=== PATIENT | female | born 1975 | race Caucasian/White ===

== ENCOUNTER → 2017-03-06 | Emergency (ER) | payer MEDICARE, OTHER ==
[~2017-03-06] VITALS: Ht 157.5 cm; Wt 120.9 kg
[~2017-03-06] MED LIST: AUGMENTIN 875-1 EACH PO; CLINDAMYCIN PHOS 600 MG/ 4 ML VIAL IM ONE; IBUPROFEN 400 MG TAB PO ONE
== END | disposition home or self-care (01) ==
LOC: FSED 14:00
DX: K08.9 Disorder of teeth and supporting structures, unspecified (principal); K04.7 Periapical abscess without sinus
CPT/HCPCS: 99282

== ENCOUNTER 2018-05-01 11:09 | Emergency (ER) | payer MEDICARE, OTHER ==
[~2018-05-01] VITALS: Ht 157.5 cm; Wt 120.7 kg
[~2018-05-01 11:09] MED LIST changes: -CLINDAMYCIN PHOS 600 MG/ 4 ML VIAL IM ONE; -IBUPROFEN 400 MG TAB PO ONE
--- OUTSIDE RECORDS SUMMARY | 2018-05-01 11:12 | XMS REPORT | Summary of Care ---
Author Organization Unknown Address Unknown Phone Unavailable Encounter [facility] Encntr_magdi(FIN) [id number] Date(s): 03/30/14 - 03/30/14 [facility] [address] [place] [address]- Discharge Disposition: Home Physician Attending: Emelia Hearn MD Physician_Referring: Emelia Hearn MD Vital Signs No data available for this section Problem List Condition Effective Dates Status Health Status Informant Depression Active (emotion)(Confirmed) Fracture(Confirmed)1 Active Gastritis(Confirmed) Active Hiatal Active hernia(Confirmed) Pain / sensation Active symptom finding(Confirmed) Seizure(Confirmed) Active Ulcer(Confirmed) Active 1right leg Allergies, Adverse Reactions, Alerts Substance Reaction Severity Status NKDA Active Medications No data available for this section Results No data available for this section Immunizations No data available for this section Procedures No data available for this section Social History Social History Type Response Smoking Status Never smoker; Exposure to Tobacco Smoke None; Cigarette Smoking Last 365 Days No; Reg Smoking Cessation Counseling No Assessment and Plan No data available for this section
--- OUTSIDE RECORDS SUMMARY | 2018-05-01 11:12 | XMS REPORT | Summary of Care ---
Author Organization Unknown Address Unknown Phone Unavailable Encounter [facility] Encntr_alias(FIN) [id number] Date(s): 10/10/13 - 11/08/13 [facility] Discharge Disposition: Home Physician Attending: Kadeem Fu Reason for Visit RT ANKLE Problem List Condition Effective Dates Status Health Status Informant Depression Active (emotion)(Confirmed) Fracture(Confirmed)1 Active Gastritis(Confirmed) Active Hiatal Active hernia(Confirmed) Pain / sensation Active symptom finding(Confirmed) Seizure(Confirmed) Active Ulcer(Confirmed) Active 1right leg Allergies, Adverse Reactions, Alerts Substance Reaction Severity Status NKDA Active Medications No data available for this section Medications Administered During Your Visit No data available for this section Immunizations No data available for this section Social History Social History Type Response Smoking Status Never smoker, Exposure to Tobacco Smoke None, Cigarette Smoking Last 365 Days No, Reg Smoking Cessation Counseling No
--- OUTSIDE RECORDS SUMMARY | 2018-05-01 11:12 | XMS REPORT | CCD ---
Author Author Auto Generated Organization [facility] Address Unknown Phone Unavailable Care Team Providers Care Therapist Rrt Name Role Phone Kaity Garza RP Allergies, Adverse Reactions, Alerts Substance Reaction Status NKDA Active Vital Signs Most recent to oldest [Reference Range]: 1 Height 157.48 cm (07/27/2011 11:40:00) Weight 98.182 kg (07/27/2011 11:40:00)
--- OUTSIDE RECORDS SUMMARY | 2018-05-01 11:12 | XMS REPORT | Continuity of Care Document ---
Author Author Namita benja [facility] Interface Address Unknown Phone Unavailable Problems Problem Status Onset Date Classification Date Reported Comments Source M54.12 Active 02/28/2015 [facility] Discharge Diagnosis: Abdominal pain in female patient 07/19/2014 07/22/2014 [facility] ABDOMINAL PAIN Active 07/18/2014 [facility] 787.20 APHAGIA 784.1 BURNING SENSATION O Active 03/28/2014 [facility] BIMALLEOLAR FX Active 07/21/2013 [facility] Discharge Diagnosis: Ankle fracture 07/08/2013 07/10/2013 [facility] FALL-ANKLE PAIN Active 07/07/2013 [facility] OTHER Active 07/30/2012 [facility] NECK PAIN Active 06/22/2012 [facility] [place] STAT; AUDITORY SEIZURE Active 07/24/2011 [facility] Gastritis Active Problem 10/24/2012 [facility] Hiatal hernia Active Problem 10/24/2012 [facility] Seizure Active Problem 10/24/2012 [facility] Ulcer Active Problem 10/24/2012 [facility] Gastritis Active Problem 03/16/2015 [facility] Hiatal hernia Active Problem 03/16/2015 [facility] Seizure Active Problem 03/16/2015 [facility] Ulcer Active Problem 03/16/2015 [facility] Depression (<span ID="[id number]">Confirmed</span>) Active Problem 03/16/2015 [facility] Fracture<sup>1</sup> Active Problem 03/16/2015 right leg [facility] Pain / sensation symptom finding Active Problem 03/16/2015 [facility] CONVULSIONS NEC Active [facility] XRAY Active [facility] JOINT PAIN-SHLDER Active [facility] BILAT HIPS, LUMBAR SPINE Active [facility] [place] FX BIMALLEOLAR-CLOSED Active [facility] SPRAIN OF ANKLE DELTOID Active [facility] SPRAIN CALCANEOFIBULAR Active [facility] SPRAIN DISTAL TIBIOFIBUL Active [facility] RT ANKLE Active [facility] [place] DYSPHAGIA NOS Active [facility] RADICULOPATHY, CERVICAL REGION Active [facility] Medications Medication Details Route Status Patient Instructions Ordering Provider Order Date Source Amoxicillin/Potassium Clav (Augmentin 511-125 Tablet) 1 Each Tablet Twice A Day Active [facility] 03/06/2017 [facility] Promethazine Hydrochloride 25 MG Oral Tablet [Phenergan] 25 mg=1 tab, PO, Q6H, PRN Nausea, X 4 day, # 15 tab, 0 Refill(s) Active 07/19/2014 [facility] Ranitidine 150 MG Oral Tablet [Zantac] 150 mg=1 tab, PO, BID, # 60 tab, 0 Refill(s) Active 07/19/2014 [facility] Dicyclomine Hydrochloride 20 MG Oral Tablet [Bentyl] 20 mg=1 tab, PO, QID-Before Meals, # 28 tab, 0 Refill(s) Active 07/19/2014 [facility] Morphine 4 mg, Route: IVP, Drug form: INJ, ONCE, Dosing Weight 113.636, kg, Priority: STAT, Start date: 07/18/14 23:28:00, Stop date: 07/18/14 23:28:00 Inactive 07/19/2014 [facility] Morphine 4 mg, Route: IVP, ONCE, Dosing Weight 113.636, kg, Priority: STAT, Start date: 07/18/14 19:33:00, Stop date: 07/18/14 19:33:00 Inactive 07/19/2014 [facility] GI cocktail 30 mL, Route: PO, Dosing Weight 113.636, kg, ONCE, STAT, Start date: 07/18/14 19:33:00, Stop date: 07/18/14 19:33:00 Inactive 07/19/2014 [facility] Ondansetron 4 mg, Route: IVP, ONCE, Dosing Weight 113.636, kg, Priority: STAT, Start date: 07/18/14 19:33:00, Stop date: 07/18/14 19:33:00 Inactive 07/19/2014 [facility] Famotidine 20 mg, Route: IVP, ONCE, Dosing Weight 113.636, kg, Priority: STAT, Start date: 07/18/14 19:33:00, Stop date: 07/18/14 19:33:00 Inactive 07/19/2014 [facility] Sodium Chloride 0.154 MEQ/ML Injectable Solution 1,000 mL, Infuse Over: 1 hr, Route: IV, ONCE, Priority: STAT, Dosing Weight 113.636 kg, Start date: 07/18/14 19:33:00, Duration: 1 doses or times, Stop date: 07/18/14 19:33:00 Inactive 07/19/2014 [facility] Saline Flush 0.9% 10 mL, Route: IVP, Drug Form: INJ, Dosing Weight 113.636, kg, PRN, PRN Line Flush, Start date: 07/18/14 19:33:00, Duration: 30 day, Stop date: 08/17/14 19:32:00Notes: (Same as: BD Posiflush) No Longer Active 07/19/2014 [facility] Oxycodone Hydrochloride 5 MG Oral Tablet 5 mg, Route: PO, Drug form: TAB, ONCE, Dosing Weight 95.455, kg, Start date: 07/25/13 16:24:00, Stop date: 07/25/13 16:24:00 Inactive 07/25/2013 [facility] Hydromorphone 1 mg, Route: IV, ONCE, Dosing Weight 95.455, kg, Start date: 07/25/13 15:50:00, Stop date: 07/25/13 15:50:00 Inactive 07/25/2013 [facility] Lactated Ringers IV 1,000 mL 1,000 mL, Rate: 40 ml/hr, Infuse over: 25 hr, Route: IV, Dosing Weight 95.455 kg, Total Volume: 1,000, Start date: 07/25/13 12:30:00, Duration: 30 day, Stop date: 08/24/13 12:29:00 Inactive 07/25/2013 [facility] Diazepam 5 MG Oral Tablet [Valium] 5 mg=1 tab, PO, QID, Spasm, # 30 tab, 0 Refill(s) Active 07/25/2013 [facility] Acetaminophen 325 MG / Hydrocodone Bitartrate 7.5 MG Oral Tablet [[place] 7.5/325] 1-2 tab, PO, Q4-6H, Pain, # 30 tab, 0 Refill(s) Active 07/25/2013 [facility] Cephalexin 500 MG Oral Capsule [Keflex] 500 mg=1 cap, PO, QID, # 40 cap, 0 Refill(s) Active 07/25/2013 [facility] Hydroxyzine Hydrochloride 25 MG Oral Tablet 25 mg=1 tab, PO, as needed for anxiety, 0 Refill(s) Active 07/24/2013 [facility] citalopram 20 mg oral tablet 20 mg=1 tab, PO, Daily, 0 Refill(s) Active 07/24/2013 [facility] omeprazole 20 mg oral enteric coated tablet 20 mg=1 tab, PO, Daily, 0 Refill(s) Active 07/24/2013 [facility] lamotrigine 150 MG Oral Tablet [Lamictal] 150 mg=1 tab, PO, BID, 0 Refill(s) Active 07/24/2013 [facility] lacosamide 100 MG Oral Tablet [Vimpat] 100 mg=1 tab, PO, BID, 0 Refill(s) Active 07/24/2013 [facility] Acetaminophen 325 MG / Hydrocodone Bitartrate 5 MG Oral Tablet [[place] 5/325] 1 tab, PO, Q4-6H, as needed for pain, # 30 tab, 0 Refill(s) Active 07/08/2013 [facility] Acetaminophen 325 MG / Hydrocodone Bitartrate 5 MG Oral Tablet [[place] 5/325] 1 tab, Route: PO, Dosing Weight 114.091, kg, ONCE, Start date: 07/08/13 0:05:00, Stop date: 07/08/13 0:05:00 Inactive 07/08/2013 [facility] [place] 5/325 oral tablet 1-2 tab, PO, Q4-6H, PRN, 15 tab, Pain, Substitution Allowed, Maintenance PO Active Dress Code 07/30/2012 [facility] [place] 5/325 oral tablet 2 tab, Route: PO, Dosing Weight 113.636, kg, ONCE, Start date: 07/30/12 18:32:00, Stop date: 07/30/12 18:32:00 PO No Longer Active Dress Code 07/30/2012 [facility] Saline Flush 0.9% 5 ml, Route: IVP, Drug Form: INJ, Dosing Weight 113.636, kg, PRN, PRN Line Flush, Start date: 07/30/12 14:10:00, Duration: 30 day, Stop date: 08/29/12 14:09:00 IVP No Longer Active [place]aze 07/30/2012 [facility] Allergies, Adverse Reactions, Alerts Substance Category Reaction Severity Reaction type Status Date Reported Comments Source Immunizations Immunization Date Given Site Status Last Updated Comments Source Results Order Name Results Value Reference Range Date Interpretation Comments Source Spine cervical wo contrast MRI Spine cervical wo contrast MRI MRI CERVICAL SPINE WITHOUT CONTRAST INDICATION: Cervical spine pain with right arm radiculopathy COMPARISON: CERVICAL SPINE RADIOGRAPH 05/27/2012 DISCUSSION: Alignment: Vertebral body alignment is within normal limits. Craniocervical junction: No abnormalities. The foramen magnum is patent. Vertebral bodies: There is diffuse abnormal T1 hypointense bone marrow signal. The vertebral bodies are normal in height, without marrow edema, from C2 through T2. Spinal cord: Normal in signal and morphology from the foramen magnum through T2-T3. Soft tissues: No signal abnormalities are visualized. Disc spaces, foramina, and spinal canal: C2-C3 through C7-T1: The discs are normal in height and signal. There is no significant arthrosis. The spinal canal and foramina are patent. IMPRESSION: 1. No significant spondylosis, spinal canal or foraminal stenosis. 2. The spinal cord is normal in signal. 3. Nonspecific diffuse T1 hypointensity of the bone marrow is probably secondary to reconversion of yellow to red marrow. Reconversion can be found incidentally in obese women; however, hemolytic anemias and replacement/destruction of normal red marrow from marrow proliferative or replacement disorders can cause a similar appearance. SL: 16 03/13/2015 - - Read by: Evert Bertrand MD Dictated Date/time: 03/13/15 15:22 Electronically Signed by: Evert Bertrand MD 03/13/15 15:28 FINAL REPORT [facility] ED Abdomen/Pelvis IV contrast only CT ED Abdomen/Pelvis IV contrast only CT HISTORY: Abdominal pain. CT abdomen and pelvis performed with IV contrast. FINDINGS: Mild dependent atelectasis. No pleural effusion. Fatty liver. Prior cholecystectomy. Pancreas, adrenal glands, spleen, kidneys demonstrate no acute finding. No bowel obstruction free air or pathologic fluid. Normal appendix. No evidence for diverticulitis. No pathologic pelvic fluid or mass. IMPRESSION: Previous cholecystectomy. Hepatic steatosis. No acute abdominal or pelvic findings otherwise. SL:12 07/19/2014 - - Read by: Jerry Hernandez MD Dictated Date/time: 07/19/14 01:54 Electronically Signed by: Jerry Hernandez MD 07/19/14 01:56 FINAL REPORT [facility] CHEM PANEL Lipase Lvl 101 unit/L 73 - 393 07/19/2014 [facility] CHEM PANEL Amylase Lvl 50 unit/L 25 - 115 07/19/2014 [facility] CHEM PANEL A/G Ratio 0.9 0.7 - 1.6 07/19/2014 [facility] CHEM PANEL Globulin 4.1 g/dL 2.0 - 4.0 07/19/2014 [facility] CHEM PANEL B/C Ratio 10 6 - 25 07/19/2014 [facility] CHEM PANEL AGAP 11.8 meq/L 10.0 - 20.0 07/19/2014 [facility] CHEM PANEL Chloride Lvl 108 meq/L 95 - 109 07/19/2014 [facility] CHEM PANEL Potassium Lvl 3.8 meq/L 3.5 - 5.1 07/19/2014 [facility] CHEM PANEL Sodium Lvl 140 meq/L 135 - 145 07/19/2014 [facility] CHEM PANEL eGFR 73 mL/min/1.73m2 07/19/2014 1Result Comment: The eGFR is calculated using the CKD-EPI formula. In most young, healthy individuals the eGFR will be >90 mL/min/1.73m2. The eGFR declines with age. An eGFR of 60-89 may be normal in some populations, particularly the elderly, for whom the CKD-EPI formula has not been extensively validated. Use of the eGFR is not recommended in the following populations: Individuals with unstable creatinine concentrations, including patients and those with serious co-morbid conditions. Patients with extremes in muscle mass or diet. The data above are obtained from the National Kidney Disease Education Program (NKDEP) which additionally recommends that when the eGFR is used in patients with extremes of body mass index for purposes of drug dosing, the eGFR should be multiplied by the estimated BMI. [facility] CHEM PANEL Bili Total 0.5 mg/dL 0.2 - 1.3 07/19/2014 [facility] CHEM PANEL Alk Phos 359 unit/L 39 - 136 07/19/2014 [facility] CHEM PANEL AST 197 unit/L 0 - 37 07/19/2014 [facility] CHEM PANEL ALT 200 unit/L 0 - 65 07/19/2014 [facility] CHEM PANEL Albumin Lvl 3.8 g/dL 3.5 - 5.0 07/19/2014 [facility] CHEM PANEL Total Protein 7.9 g/dL 6.4 - 8.4 07/19/2014 [facility] CHEM PANEL Glucose Lvl 116 mg/dL 70 - 99 07/19/2014 2Interpretive Data: Adult reference range values reflect the clinical guidelines of the [place] [employer]. [facility] CHEM PANEL Calcium Lvl 8.7 mg/dL 8.5 - 10.5 07/19/2014 [facility] CHEM PANEL CO2 24 meq/L 24 - 32 07/19/2014 [facility] CHEM PANEL Creatinine Lvl 1.0 mg/dL 0.5 - 1.4 07/19/2014 [facility] CHEM PANEL BUN 10 mg/dL 7 - 22 07/19/2014 [facility] HEMATOLOGY Hct 38.8 % 36.0 - 48.0 07/19/2014 [facility] MCV 80.3 fL 80.0 - 98.0 07/19/2014 [facility] MCH 26.7 pg 27.0 - 31.0 07/19/2014 [facility] MCHC 33.2 g/dL 32.0 - 36.0 07/19/2014 [facility] RDW 15.1 % 11.5 - 14.5 07/19/2014 [facility] Platelet 350 K/CMM 133 - 450 07/19/2014 [facility] MPV 8.4 fL 7.4 - 10.4 07/19/2014 [facility] WBC 8.2 K/CMM 3.7 - 10.4 07/19/2014 [facility] Hgb 12.9 g/dL 12.0 - 16.0 07/19/2014 [facility] RBC 4.83 M/CMM 4.20 - 5.40 07/19/2014 [facility] Basophils # 0.1 K/CMM 0.0 - 0.2 07/19/2014 [facility] HEMATOLOGY Eosinophils # 0.2 K/CMM 0.0 - 0.5 07/19/2014 [facility] Monocytes # 0.5 K/CMM 0.0 - 0.8 07/19/2014 [facility] Lymphocytes 35.6 % 20.0 - 40.0 07/19/2014 [facility] HEMATOLOGY Segs 55.3 % 45.0 - 75.0 07/19/2014 [facility] HEMATOLOGY Monocytes 6.3 % 2.0 - 12.0 07/19/2014 [facility] HEMATOLOGY Eosinophils 2.0 % 0.0 - 4.0 07/19/2014 [facility] HEMATOLOGY Segs-Bands # 4.5 K/CMM 1.5 - 8.1 07/19/2014 [facility] HEMATOLOGY Basophils 0.8 % 0.0 - 1.0 07/19/2014 [facility] HEMATOLOGY Lymphocytes # 2.9 K/CMM 1.0 - 5.5 07/19/2014 [facility] URINE AND STOOL UA Color Ltyellow 07/19/2014 [facility] URINE AND STOOL UA Urobilinogen <=1.0 mg/dL 0.1 - 1.0 07/19/2014 [facility] URINE AND STOOL UA RBC 2 /HPF 0 - 2 07/19/2014 [facility] URINE AND STOOL UA WBC 1 /HPF 0 - 5 07/19/2014 [facility] URINE AND STOOL UA Sq Epi Occasional /LPF Few /LPF 07/19/2014 [facility] URINE AND STOOL UA Blood Small *ABN* (07/18/14 7:53 PM) Negative 07/19/2014 [facility] URINE AND STOOL UA Bili Negative *NA* (07/18/14 7:53 PM) Negative 07/19/2014 [facility] URINE AND STOOL UA Nitrite Negative (07/18/14 7:53 PM) Negative 07/19/2014 [facility] URINE AND STOOL UA Leuk Est Negative (07/18/14 7:53 PM) Negative 07/19/2014 [facility] URINE AND STOOL UA Turbidity Clear (07/18/14 7:53 PM) Clear 07/19/2014 [facility] URINE AND STOOL UA pH 6.0 5.0 - 8.0 07/19/2014 [facility] URINE AND STOOL UA Spec Grav 1.010 <=1.030 07/19/2014 [facility] URINE AND STOOL UA Glucose Negative mg/dL Negative mg/dL 07/19/2014 [facility] URINE AND STOOL UA Protein Negative mg/dL Negative mg/dL 07/19/2014 [facility] URINE AND STOOL UA Ketones Negative mg/dL Negative mg/dL 07/19/2014 [facility] URINE CHEM U Preg Negative (07/18/14 7:53 PM) Negative 07/19/2014 [facility] Abdomen RUQ US Abdomen RUQ US HISTORY: Acute abdominal pain. Gallbladder absent. Fatty liver. Common bile duct normal 5 mm. Pancreatic neck appears normal. Remaining pancreas obscured. Right kidney demonstrates no hydronephrosis. IMPRESSION: Prior cholecystectomy. No acute finding. Hepatic steatosis. SL:12 07/18/2014 - - Read by: Jerry Hernandez MD Dictated Date/time: 07/18/14 22:48 Electronically Signed by: Jerry Hernandez MD 07/18/14 22:49 FINAL REPORT [facility] Barium Swallow w Esophagus Function DX Barium Swallow w Esophagus Function DX Barium Swallow/Video esophagram: CLINICAL HX: Dysphagia, neck pain TECHNIQUE: Thin barium was utilized for prone and LPO images. Thick barium was utilized for upright imaging of the esophagus and pharynx. Hamburger meat with barium paste was given to evaluate motility with solids. FINDINGS: There is no delay in passage of bolus from the pharynx into the esophagus. The cricopharyngeus relaxes normally. There is no evidence for a cricopharyngeal bar or Zenker's diverticulum. Prone and LPO images of the esophagus reveal no significant dysmotility. Tiny hiatal hernia, approximately 1 cm in size, is visualized at the GE junction. Mild gastroesophageal reflux Upright images with thick barium reveal no significant dysmotility. No mass lesions or strictures are visualized. The tiny hernia is not visualized on the upright images. Mild gastroesophageal reflux. Subsequently 2 separate swallows of a small piece of hamburger meat and barium were fluoroscopically followed through the length of esophagus. There is no significant delay in passage of the solid barium bolus from the pharynx to the esophagus and subsequently into the stomach. Overhead image performed at the conclusion of the procedure reveals prompt passage of barium from the stomach to the proximal small bowel. IMPRESSION: Tiny sliding hiatal hernia is visualized at the GE junction. Mild gastroesophageal reflux. Fluoroscopy Time: 3.4 minutes SL:13 03/30/2014 - - Read by: Travis Diez MD Dictated Date/time: 03/30/14 17:13 Electronically Signed by: Travis Diez MD 04/02/14 07:50 FINAL REPORT [facility] Ankle 2 views Ankle 2 views C- arm spot images from the operating room show placement of a lateral fibular sideplate and screws, medial malleolar screws, and medial and lateral malleolar washers related to synchondrosis fixation. The osseous structures are anatomically aligned. SL:13 07/25/2013 - - Read by: Robb Jansen MD Dictated Date/time: 07/25/13 17:41 Electronically Signed by: Robb Jansen MD 07/25/13 17:43 FINAL REPORT [facility] MCV 76.7 fL 81.0 - 99.0 07/24/2013 [facility] MCH 26.0 pg 27.0 - 31.0 07/24/2013 [facility] MPV 8.1 fL 7.4 - 10.4 07/24/2013 [facility] RDW 13.8 % 11.5 - 14.5 07/24/2013 [facility] MCHC 33.8 g/dL 32.0 - 36.0 07/24/2013 [facility] Platelet 438 K/CMM 133 - 450 07/24/2013 [facility] WBC 9.5 K/CMM 3.7 - 10.4 07/24/2013 [facility] Hct 37.6 % 36.0 - 48.0 07/24/2013 [facility] RBC 4.90 M/CMM 4.20 - 5.40 07/24/2013 [facility] Hgb 12.7 g/dL 12.0 - 16.0 07/24/2013 [facility] Basophils # 0.0 K/CMM 0.0 - 0.2 07/24/2013 [facility] HEMATOLOGY Eosinophils 3.1 % 0.0 - 4.0 07/24/2013 [facility] Monocytes 7.7 % 2.0 - 12.0 07/24/2013 [facility] Lymphocytes 42.2 % 20.0 - 40.0 07/24/2013 [facility] HEMATOLOGY Segs 46.5 % 45.0 - 75.0 07/24/2013 [facility] Basophils 0.5 % 0.0 - 1.0 07/24/2013 [facility] HEMATOLOGY Lymphocytes # 4.0 K/CMM 1.0 - 5.5 07/24/2013 [facility] HEMATOLOGY Segs-Bands # 4.4 K/CMM 1.5 - 8.1 07/24/2013 [facility] Monocytes # 0.7 K/CMM 0.0 - 0.8 07/24/2013 [facility] Eosinophils # 0.3 K/CMM 0.0 - 0.5 07/24/2013 [facility] URINE CHEM U Preg Negative (07/24/13 3:44 PM) Negative 07/24/2013 [facility] Ankle 3 views Ankle 3 views Right ankle, 3 views: CLINICAL HISTORY: Pain and swelling Nondisplaced comminuted fracture distally in the fibula. Displaced medial malleolar fracture. Widened ankle mortise with anterior subluxation of the distal tibia with respect to the talus. Moderate diffuse soft tissue thickening. SL:17 07/08/2013 - - Read by: Hema Tate MD Dictated Date/time: 07/08/13 00:23 Electronically Signed by: Hema Tate MD 07/08/13 00:24 FINAL REPORT [facility] CHEMISTRY U Opiate Scr Positive *ABN* (07/30/2012 16:50:00) Negative 07/30/2012 ABN [facility] CHEMISTRY U Cannab Scr Negative *NA* (07/30/2012 16:50:00) Negative 07/30/2012 NA [facility] CHEMISTRY U Phencyc Scr Negative *NA* (07/30/2012 16:50:00) Negative 07/30/2012 NA [facility] U Cocaine Scr Negative *NA* (07/30/2012 16:50:00) Negative 07/30/2012 NA [facility] CHEMISTRY U Benzodia Scr Negative *NA* (07/30/2012 16:50:00) Negative 07/30/2012 NA [facility] CHEMISTRY UDS Note See Note 3 (07/30/2012 16:50:00) 07/30/2012 Normal 3Interpretive Data: Drugs reported as positive have not been confirmed by a second method and should be used for medical purposes only. To order confirmation, contact laboratory. note: Below are cut-off concentrations for all urine drugs of abuse performed in the laboratory. Some drugs listed in the table may not be included in this panel. Description Cut-off concentration Amphetamine 1000 ng/mL Barbiturates 200 ng/mL Benzodiazepines 300 ng/mL Cocaine metabolites 300 ng/mL Opiates 300 ng/mL Phencyclidine 25 ng/mL Propoxyphene 300 ng/mL Marijuana metabolites 50 ng/mL Methadone 300 ng/mL Urine alcohol 20 mg/dL [facility] CHEMISTRY U Lynda Scr Negative *NA* (07/30/2012 16:50:00) Negative 07/30/2012 [facility] CHEMISTRY U Amph Scr Negative *NA* (07/30/2012 16:50:00) Negative 07/30/2012 [facility] URINALYSIS UA Urobilinogen <=1.0 mg/dL
*NA*
(07/30/2012 16:50:00) <sup> </sup> 0.1 - 1.0 07/30/2012 [facility] URINALYSIS UA Color Ltyellow 07/30/2012 [facility] URINALYSIS UA pH 5.0 5.0 - 8.0 07/30/2012 Normal [facility] URINALYSIS UA Turbidity Clear (07/30/2012 16:50:00) Clear 07/30/2012 Normal [facility] URINALYSIS UA RBC 2 /HPF 0 - 2 07/30/2012 Normal [facility] URINALYSIS UA Sq Epi Occasional /LPF *NA* (07/30/2012 16:50:00) Few 07/30/2012 [facility] URINALYSIS UA Uric Ac Michelle Occasional /HPF *NA* (07/30/2012 16:50:00) None Seen 07/30/2012 [facility] URINALYSIS UA Mucus Few /LPF *NA* (07/30/2012 16:50:00) None Seen 07/30/2012 [facility] URINALYSIS UA Spec Grav 1.013 <=1.030 07/30/2012 Normal [facility] URINALYSIS UA Bili Negative *NA* (07/30/2012 16:50:00) Negative 07/30/2012 [facility] URINALYSIS UA Protein 100 mg/dL *ABN* (07/30/2012 16:50:00) Negative 07/30/2012 ABN [facility] URINALYSIS UA Glucose Negative mg/dL *NA* (07/30/2012 16:50:00) Negative 07/30/2012 [facility] URINALYSIS UA Blood Moderate *ABN* (07/30/2012 16:50:00) Negative 07/30/2012 ABN [facility] URINALYSIS UA Ketones Negative mg/dL *NA* (07/30/2012 16:50:00) Negative 07/30/2012 NA [facility] URINALYSIS UA Bacteria Occasional /HPF *NA* (07/30/2012 16:50:00) None Seen 07/30/2012 NA [facility] URINALYSIS UA WBC 1 /HPF 0 - 5 07/30/2012 Normal [facility] URINALYSIS UA Nitrite Negative (07/30/2012 16:50:00) Negative 07/30/2012 Normal [facility] URINALYSIS UA Leuk Est Negative (07/30/2012 16:50:00) Negative 07/30/2012 Normal [facility] CHEMISTRY B/C Ratio 8 6 - 25 07/30/2012 Normal [facility] CHEMISTRY Globulin 4.7 g/dL 2.0 - 4.0 07/30/2012 [facility] CHEMISTRY A/G Ratio 0.8 0.7 - 1.6 07/30/2012 Normal [facility] CHEMISTRY AGAP 24.7 meq/L 10.0 - 20.0 07/30/2012 [facility] CHEMISTRY eGFR 59 mL/min/1.73m2 07/30/2012 NA 1Result Comment: The eGFR is calculated using the CKD-EPI formula. In most young, healthy individuals the eGFR will be >90 mL/min/1.73m2. The eGFR declines with age. An eGFR of 60-89 may be normal in some populations, particularly the elderly, for whom the CKD-EPI formula has not been extensively validated. Use of the eGFR is not recommended in the following populations: Individuals with unstable creatinine concentrations, including patients and those with serious co-morbid conditions. Patients with extremes in muscle mass or diet. The data above are obtained from the National Kidney Disease Education Program (NKDEP) which additionally recommends that when the eGFR is used in patients with extremes of body mass index for purposes of drug dosing, the eGFR should be multiplied by the estimated BMI. [facility] CHEMISTRY Albumin Lvl 3.8 g/dL 3.5 - 5.0 07/30/2012 Normal [facility] CHEMISTRY Alk Phos 255 unit/L 39 - 136 07/30/2012 [facility] CHEMISTRY Bili Total 0.4 mg/dL 0.2 - 1.3 07/30/2012 Normal [facility] CHEMISTRY ALT 88 unit/L 0 - 65 07/30/2012 [facility] CHEMISTRY AST 55 unit/L 0 - 37 07/30/2012 [facility] CHEMISTRY Creatinine Lvl 1.2 mg/dL 0.5 - 1.4 07/30/2012 Normal [facility] CHEMISTRY Glucose Lvl 181 mg/dL 70 - 99 07/30/2012 HI 2Interpretive Data: Adult reference range values reflect the clinical guidelines of the [place] [employer]. [facility] CHEMISTRY BUN 10 mg/dL 7 - 22 07/30/2012 Normal [facility] CHEMISTRY Total Protein 8.5 g/dL 6.4 - 8.4 07/30/2012 HI [facility] CHEMISTRY CO2 13 meq/L 24 - 32 07/30/2012 LOW [facility] CHEMISTRY Calcium Lvl 8.7 mg/dL 8.5 - 10.5 07/30/2012 Normal [facility] CHEMISTRY Chloride Lvl 108 meq/L 95 - 109 07/30/2012 Normal [facility] CHEMISTRY Potassium Lvl 3.7 meq/L 3.5 - 5.1 07/30/2012 Normal [facility] CHEMISTRY Sodium Lvl 142 meq/L 135 - 145 07/30/2012 Normal [facility] HEMATOLOGY WBC 21.3 K/CMM 3.7 - 10.4 07/30/2012 HI [facility] HEMATOLOGY RBC 5.12 M/CMM 4.20 - 5.40 07/30/2012 Normal [facility] HEMATOLOGY Hgb 14.1 g/dL 12.0 - 16.0 07/30/2012 Normal [facility] HEMATOLOGY Hct 43.2 % 36.0 - 48.0 07/30/2012 Normal [facility] HEMATOLOGY Platelet 419 K/CMM 133 - 450 07/30/2012 Normal [facility] HEMATOLOGY MPV 8.7 fL 7.4 - 10.4 07/30/2012 Normal [facility] HEMATOLOGY MCHC 32.6 g/dL 32.0 - 36.0 07/30/2012 Normal [facility] HEMATOLOGY RDW 14.2 % 11.5 - 14.5 07/30/2012 Normal [facility] HEMATOLOGY MCV 84.2 fL 81.0 - 99.0 07/30/2012 Normal [facility] HEMATOLOGY MCH 27.5 pg 27.0 - 31.0 07/30/2012 Normal [facility] HEMATOLOGY INR 0.95 0.85 - 1.17 07/30/2012 Normal 4Interpretive Data: RECOMMENDED RANGES FOR PROTIME INR: 2.0-3.0 for most medical and surgical thromboembolic states. 2.5-3.5 for artificial heart valves and recurrent embolism. INR SHOULD BE USED ONLY FOR PATIENTS ON STABLE ANTICOAGULANT THERAPY. [facility] HEMATOLOGY PTT 29.6 s 22.9 - 35.8 07/30/2012 Normal 5Interpretive Data: Heparin Therapeutic Range: 57 - 92 Seconds [facility] HEMATOLOGY PT 12.9 s 12.0 - 14.7 07/30/2012 Normal [facility] HEMATOLOGY Segs-Bands # 10.2 K/CMM 1.5 - 8.1 07/30/2012 [facility] HEMATOLOGY Basophils 0.4 % 0.0 - 1.0 07/30/2012 Normal [facility] HEMATOLOGY Lymphocytes # 9.2 K/CMM 1.0 - 5.5 07/30/2012 [facility] HEMATOLOGY Eosinophils 1.5 % 0.0 - 4.0 07/30/2012 Normal [facility] HEMATOLOGY Monocytes 6.8 % 2.0 - 12.0 07/30/2012 Normal [facility] HEMATOLOGY Monocytes # 1.4 K/CMM 0.0 - 0.8 07/30/2012 [facility] HEMATOLOGY Lymphocytes 43.1 % 20.0 - 40.0 07/30/2012 [facility] HEMATOLOGY Eosinophils # 0.3 K/CMM 0.0 - 0.5 07/30/2012 Normal [facility] HEMATOLOGY Basophils # 0.1 K/CMM 0.0 - 0.2 07/30/2012 Normal [facility] HEMATOLOGY Segs 48.2 % 45.0 - 75.0 07/30/2012 Normal [facility] Vital Signs Vital Sign Value Date Comments Source Systolic (mm Hg) 138 07/19/2014 [facility] Diastolic (mm Hg) 80 07/19/2014 [facility] Respitory Rate 18 07/19/2014 [facility] Temperature Oral (F) 98.4 F 07/19/2014 [facility] Heart Rate 88 07/19/2014 [facility] Respitory Rate 20 07/19/2014 [facility] Heart Rate 95 07/19/2014 [facility] Temperature Oral (F) 98.0 F 07/19/2014 [facility] Systolic (mm Hg) 140 07/19/2014 [facility] Diastolic (mm Hg) 86 07/19/2014 [facility] Systolic (mm Hg) 143 07/19/2014 [facility] Diastolic (mm Hg) 83 07/19/2014 [facility] Temperature Oral (F) 98.0 F 07/19/2014 [facility] Heart Rate 94 07/19/2014 [facility] Respitory Rate 18 07/19/2014 [facility] Weight 113.636 07/18/2014 [facility] BMI Calculated 44.38 07/18/2014 [facility] Height 160.02 cm 07/18/2014 [facility] Diastolic (mm Hg) 79 07/25/2013 [facility] Systolic (mm Hg) 142 07/25/2013 [facility] Respitory Rate 18 07/25/2013 [facility] Systolic (mm Hg) 149 07/25/2013 [facility] Diastolic (mm Hg) 82 07/25/2013 [facility] Respitory Rate 21 07/25/2013 [facility] Systolic (mm Hg) 138 07/25/2013 [facility] Diastolic (mm Hg) 77 07/25/2013 [facility] Respitory Rate 19 07/25/2013 [facility] Temperature Oral (F) 98.0 F 07/24/2013 [facility] Heart Rate 91 07/24/2013 [facility] Height 157.48 cm 07/24/2013 [facility] Weight 95.455 07/24/2013 [facility] BMI Calculated 38.49 07/24/2013 [facility] Temperature Oral (F) 98.5 F 07/08/2013 [facility] Diastolic (mm Hg) 65 07/08/2013 [facility] Respitory Rate 18 07/08/2013 [facility] Systolic (mm Hg) 111 07/08/2013 [facility] Heart Rate 100 07/08/2013 [facility] Systolic (mm Hg) 131 07/08/2013 [facility] Diastolic (mm Hg) 78 07/08/2013 [facility] Heart Rate 110 07/08/2013 [facility] Respitory Rate 18 07/08/2013 [facility] Weight 114.091 07/08/2013 [facility] BMI Calculated 46 07/08/2013 [facility] Height 157.48 cm 07/08/2013 [facility] Temperature Oral (F) 98.6 F 07/08/2013 [facility] Respitory Rate 16 07/08/2013 [facility] Heart Rate 90 07/08/2013 [facility] Diastolic (mm Hg) 118 07/08/2013 [facility] Systolic (mm Hg) 187 07/08/2013 [facility] Height 165.1 cm 07/30/2012 [facility] Weight 113.636 07/30/2012 [facility] Weight 98.182 07/27/2011 [facility] Height 157.48 cm 07/27/2011 [facility] Encounters Location Location Details Encounter Type Encounter Number Reason For Visit Attending Provider ADM Date DC Date Status Source [facility] Outpatient [id number] STAT; AUDITORY SEIZURE KAITY MAJMUNDAR 07/27/2011 Active [facility] Outpatient [id number] MARY MORAES 05/27/2012 Active [facility] [id number] NECK PAIN ABDI MORAES 06/28/[address] [facility] Emergency [id number] TIBURCIO CLARK 07/30/2012 07/30/2012 Active [facility] [id number] BILAT HIPS, LUMBAR SPINE ABDI MORAES 09/23/2012 Active [facility] [id number] Sunny Parikh 07/08/2013 07/08/2013 [facility] OBS Day Surgery [id number] Kadeem Fu 07/25/2013 07/25/2013 [facility] OP Therapy Patients [id number] Kadeem Fu 10/10/2013 11/09/2013 [facility] Outpatient [id number] Emelia Hearn 03/30/2014 03/31/2014 [facility] Emergency Center [id number] Donnell Tovar 07/18/2014 07/19/2014 [facility] Outpatient [id number] Kaity Garza 03/13/2015 03/14/2015 [facility] Departed Emergency Room [id number] LIAM BUSCH MD 03/06/2017 03/06/2017 [facility] Procedures Procedure Code Date Perfomer Comments Source Laparoscopy [id number] 02/08/2005 [facility] Cholecystectomy [id number] [facility] Cholecystectomy [id number] [facility]
--- OUTSIDE RECORDS SUMMARY | 2018-05-01 11:12 | XMS REPORT | Summary of Care ---
Author Organization Unknown Address Unknown Phone Unavailable Encounter MAX Cody(KATY) [id number] Date(s): 07/07/13 - 07/08/13 [facility] [address] [place], [place] [id number] [place] [address] Discharge Diagnosis: Ankle fracture Discharge Disposition: Home Physician Attending: Sunny Parikh MD Reason for Visit FALL-ANKLE PAIN Vital Signs 1 2 3 Most recent to oldest [Reference Range]: 157.48 cm (07/07/13 11:13 PM) Height 98.5 DegF (07/08/13 1:08 AM) 98.6 DegF (07/07/13 11:13 PM) Temperature Oral [96.4-99.1 DegF] 111 mmHg (07/08/13 1:08 AM) 131 mmHg (07/08/13 12:16 AM) 187 mmHg *HI* (07/07/13 11:13 PM) Systolic Blood Pressure [90-140 mmHg] 65 mmHg (07/08/13 1:08 AM) 78 mmHg (07/08/13 12:16 AM) 118 mmHg *HI* (07/07/13 11:13 PM) Diastolic Blood Pressure [60-90 mmHg] 18 BRMIN (07/08/13 1:08 AM) 18 BRMIN (07/08/13 12:16 AM) 16 BRMIN (07/07/13 11:13 PM) Respiratory Rate [14-20 BRMIN] 100 bpm (07/08/13 1:08 AM) 110 bpm *HI* (07/08/13 12:16 AM) 90 bpm (07/07/13 11:13 PM) Peripheral Pulse Rate [60-100 bpm] 114.091 kg (07/07/13 11:13 PM) Weight 46 m2 (07/07/13 11:13 PM) Body Mass Index Problem List Condition Effective Dates Status Health Status Informant Gastritis(Confirmed) Active Hiatal Active hernia(Confirmed) Seizure(Confirmed) Active Ulcer(Confirmed) Active Allergies, Adverse Reactions, Alerts Substance Reaction Severity Status NKDA Active Medications Shafter 5/325 oral tablet 1 tab, Route: PO, Dosing Weight 114.091, kg, ONCE, Start date: 07/08/13 0:05:00, Stop date: 07/08/13 0:05:00 Start Date: 07/08/13 Stop Date: 07/08/13 Status: Completed Shafter 5/325 oral tablet 1 tab, PO, Q4-6H, as needed for pain, # 30 tab, 0 Refill(s) Start Date: 07/08/13 Status: Ordered Medications Administered During Your Visit No data available for this section Immunizations No data available for this section Social History Social History Type Response Smoking Status Never smoker, Exposure to Tobacco Smoke None, Cigarette Smoking Last 365 Days No, Reg Smoking Cessation Counseling No
--- OUTSIDE RECORDS SUMMARY | 2018-05-01 11:12 | XMS REPORT | Summary of Care ---
Author Organization Unknown Address Unknown Phone Unavailable Encounter HQ Seymour_magdi(KATY) [id number] Date(s): 07/25/13 - 07/25/13 [facility] [address] [address] Discharge Disposition: Home Physician Attending: Kadeem Fu Physician_Referring: Kadeem Fu Reason for Visit BIMALLEOLAR FX Vital Signs 1 2 3 Most recent to oldest [Reference Range]: 157.48 cm (07/24/13 3:06 PM) Height 98.0 DegF (07/24/13 3:20 PM) Temperature Oral [96.4-99.1 DegF] 142 mmHg *HI* (07/25/13 5:15 PM) 149 mmHg *HI* (07/25/13 4:00 PM) 138 mmHg (07/25/13 3:45 PM) Systolic Blood Pressure [90-140 mmHg] 79 mmHg (07/25/13 5:15 PM) 82 mmHg (07/25/13 4:00 PM) 77 mmHg (07/25/13 3:45 PM) Diastolic Blood Pressure [60-90 mmHg] 18 BRMIN (07/25/13 5:15 PM) 21 BRMIN *HI* (07/25/13 4:00 PM) 19 BRMIN (07/25/13 3:45 PM) Respiratory Rate [14-20 BRMIN] 91 bpm (07/24/13 3:20 PM) Peripheral Pulse Rate [60-100 bpm] 95.455 kg (07/24/13 3:06 PM) Weight 38.49 m2 (07/24/13 3:06 PM) Body Mass Index Problem List Condition Effective Dates Status Health Status Informant Depression Active (emotion)(Confirmed) Fracture(Confirmed)1 Active Gastritis(Confirmed) Active Hiatal Active hernia(Confirmed) Pain / sensation Active symptom finding(Confirmed) Seizure(Confirmed) Active Ulcer(Confirmed) Active 1right leg Allergies, Adverse Reactions, Alerts Substance Reaction Severity Status NKDA Active Medications citalopram 20 mg oral tablet 20 mg=1 tab, PO, Daily, 0 Refill(s) Start Date: 07/24/13 Status: Ordered hydromorphone 1 mg, Route: IV, ONCE, Dosing Weight 95.455, kg, Start date: 07/25/13 15:50:00, Stop date: 07/25/13 15:50:00 Start Date: 07/25/13 Stop Date: 07/25/13 Status: Completed hydrOXYzine hydrochloride 25 mg oral tablet 25 mg=1 tab, PO, as needed for anxiety, 0 Refill(s) Start Date: 07/24/13 Status: Ordered Keflex 500 mg oral capsule 500 mg=1 cap, PO, QID, # 40 cap, 0 Refill(s) Start Date: 07/25/13 Stop Date: 08/04/13 Status: Ordered Lactated Ringers IV 1,000 mL 1,000 mL, Rate: 40 ml/hr, Infuse over: 25 hr, Route: IV, Dosing Weight 95.455 kg , Total Volume: 1,000, Start date: 07/25/13 12:30:00, Duration: 30 day, Stop eva e: 08/24/13 12:29:00 Start Date: 07/25/13 Stop Date: 07/25/13 Status: Discontinued LaMICtal 150 mg oral tablet 150 mg=1 tab, PO, BID, 0 Refill(s) Start Date: 07/24/13 Status: Ordered [place] 7.5/325 oral tablet 1-2 tab, PO, Q4-6H, Pain, # 30 tab, 0 Refill(s) Start Date: 07/25/13 Stop Date: 07/30/13 Status: Ordered omeprazole 20 mg oral enteric coated tablet 20 mg=1 tab, PO, Daily, 0 Refill(s) Start Date: 07/24/13 Status: Ordered oxyCODONE 5 mg immediate release 5 mg, Route: PO, Drug form: TAB, ONCE, Dosing Weight 95.455, kg, Start date: 16:24:00, Stop date: 07/25/13 16:24:00 Start Date: 07/25/13 Stop Date: 07/25/13 Status: Completed Valium 5 mg oral tablet 5 mg=1 tab, PO, QID, Spasm, # 30 tab, 0 Refill(s) Start Date: 07/25/13 Status: Ordered Vimpat 100 mg oral tablet 100 mg=1 tab, PO, BID, 0 Refill(s) Start Date: 07/24/13 Status: Ordered Results URINE CHEM Most recent to 1 oldest [Reference Range]: U Preg [Negative] Negative (07/24/13 3:44 PM) HEMATOLOGY Most recent to 1 oldest [Reference Range]: WBC [3.7-10.4 K/CMM] 9.5 K/CMM (07/24/13 3:44 PM) RBC [4.20-5.40 4.90 M/CMM M/CMM] (07/24/13 3:44 PM) Hgb [12.0-16.0 g/dL] 12.7 g/dL (07/24/13 3:44 PM) Hct [36.0-48.0 %] 37.6 % (07/24/13 3:44 PM) MCV [81.0-99.0 fL] 76.7 fL *LOW* (07/24/13 3:44 PM) MCH [27.0-31.0 pg] 26.0 pg *LOW* (07/24/13 3:44 PM) MCHC [32.0-36.0 33.8 g/dL g/dL] (07/24/13 3:44 PM) RDW [11.5-14.5 %] 13.8 % (07/24/13 3:44 PM) Platelet [133-450 438 K/CMM K/CMM] (07/24/13 3:44 PM) MPV [7.4-10.4 fL] 8.1 fL (07/24/13 3:44 PM) Segs [45.0-75.0 %] 46.5 % (07/24/13 3:44 PM) Lymphocytes 42.2 % [20.0-40.0 %] *HI* (07/24/13 3:44 PM) Monocytes [2.0-12.0 7.7 % %] (07/24/13 3:44 PM) Eosinophils [0.0-4.0 3.1 % %] (07/24/13 3:44 PM) Basophils [0.0-1.0 0.5 % %] (07/24/13 3:44 PM) Segs-Bands # 4.4 K/CMM [1.5-8.1 K/CMM] (07/24/13 3:44 PM) Lymphocytes # 4.0 K/CMM [1.0-5.5 K/CMM] (07/24/13 3:44 PM) Monocytes # [0.0-0.8 0.7 K/CMM K/CMM] (07/24/13 3:44 PM) Eosinophils # 0.3 K/CMM [0.0-0.5 K/CMM] (07/24/13 3:44 PM) Basophils # [0.0-0.2 0.0 K/CMM K/CMM] (07/24/13 3:44 PM) Medications Administered During Your Visit No data available for this section Immunizations No data available for this section Procedures Procedure Type Body Site Date of Procedure Related Diagnosis 2005 Social History Social History Type Response Smoking Status Never smoker, Exposure to Tobacco Smoke None, Cigarette Smoking Last 365 Days No, Reg Smoking Cessation Counseling No
--- OUTSIDE RECORDS SUMMARY | 2018-05-01 11:12 | XMS REPORT | Summary of Care ---
Author Organization Unknown Address Unknown Phone Unavailable Encounter HQ Glo(KATY) [id number] Date(s): 07/18/14 - 07/19/14 [facility] [address] [place] [address]- [phone] Discharge Diagnosis: Abdominal pain in female patient Discharge Disposition: Home Physician Attending: Donnell Tovar MD Vital Signs 1 2 3 Most recent to oldest [Reference Range]: 160.02 cm (07/18/14 5:38 PM) Height 98.4 DegF (07/19/14 2:50 AM) 98.0 DegF (07/19/14 12:50 AM) 98.0 DegF (07/18/14 10:50 PM) Temperature Oral [96.4-99.1 DegF] 138/80 mmHg (07/19/14 2:50 AM) 140/86 mmHg (07/19/14 12:50 AM) 143/83 mmHg *HI* (07/18/14 10:50 PM) Blood Pressure [90-140/60-90 mmHg] 18 BRMIN (07/19/14 2:50 AM) 20 BRMIN (07/19/14 12:50 AM) 18 BRMIN (07/18/14 10:50 PM) Respiratory Rate [14-20 BRMIN] 88 bpm (07/19/14 2:50 AM) 95 bpm (07/19/14 12:50 AM) 94 bpm (07/18/14 10:50 PM) Peripheral Pulse Rate [60-100 bpm] 113.636 kg (07/18/14 5:38 PM) Weight 44.38 m2 (07/18/14 5:38 PM) Body Mass Index Problem List Condition Effective Dates Status Health Status Informant Depression Active (emotion)(Confirmed) Fracture(Confirmed)1 Active Gastritis(Confirmed) Active Hiatal Active hernia(Confirmed) Pain / sensation Active symptom finding(Confirmed) Seizure(Confirmed) Active Ulcer(Confirmed) Active 1right leg Allergies, Adverse Reactions, Alerts Substance Reaction Severity Status NKDA Active Medications Bentyl 20 mg oral tablet 20 mg=1 tab, PO, QID-Before Meals, # 28 tab, 0 Refill(s) Start Date: 07/19/14 Stop Date: 07/26/14 Status: Ordered famotidine 20 mg, Route: IVP, ONCE, Dosing Weight 113.636, kg, Priority: STAT, Start date: 07/18/14 19:33:00, Stop date: 07/18/14 19:33:00 Start Date: 07/18/14 Stop Date: 07/18/14 Status: Completed GI cocktail 30 mL, Route: PO, Dosing Weight 113.636, kg, ONCE, STAT, Start date: 07/18/14 19 :33:00, Stop date: 07/18/14 19:33:00 Start Date: 07/18/14 Stop Date: 07/18/14 Status: Completed morphine Sulfate 4 mg, Route: IVP, Drug form: INJ, ONCE, Dosing Weight 113.636, kg, Priority: STA T, Start date: 07/18/14 23:28:00, Stop date: 07/18/14 23:28:00 Start Date: 07/18/14 Stop Date: 07/18/14 Status: Completed morphine Sulfate 4 mg, Route: IVP, ONCE, Dosing Weight 113.636, kg, Priority: STAT, Start date: 0 07/18/14 19:33:00, Stop date: 07/18/14 19:33:00 Start Date: 07/18/14 Stop Date: 07/18/14 Status: Completed ondansetron 4 mg, Route: IVP, ONCE, Dosing Weight 113.636, kg, Priority: STAT, Start date: 0 07/18/14 19:33:00, Stop date: 07/18/14 19:33:00 Start Date: 07/18/14 Stop Date: 07/18/14 Status: Completed Phenergan 25 mg oral tablet 25 mg=1 tab, PO, Q6H, PRN Nausea, X 4 day, # 15 tab, 0 Refill(s) Start Date: 07/19/14 Stop Date: 07/23/14 Status: Ordered Saline Flush 0.9% 10 mL, Route: IVP, Drug Form: INJ, Dosing Weight 113.636, kg, PRN, PRN Line Flus h, Start date: 07/18/14 19:33:00, Duration: 30 day, Stop date: 08/17/14 19:32:00 Notes: (Same as: BD Posiflush) Start Date: 07/18/14 Stop Date: 07/19/14 Status: Discontinued Sodium Chloride 0.9% (Bolus) IV 1,000 mL, Infuse Over: 1 hr, Route: IV, ONCE, Priority: STAT, Dosing Weight 113. 636 kg, Start date: 07/18/14 19:33:00, Duration: 1 doses or times, Stop date: 19:33:00 Start Date: 07/18/14 Stop Date: 07/18/14 Status: Completed Zantac 150 oral tablet 150 mg=1 tab, PO, BID, # 60 tab, 0 Refill(s) Start Date: 07/19/14 Status: Ordered Results ELECTROLYTES Most recent to 1 oldest [Reference Range]: Sodium Lvl [135-145 140 mEq/L mEq/L] (07/18/14 7:53 PM) Potassium Lvl 3.8 mEq/L [3.5-5.1 mEq/L] (07/18/14 7:53 PM) Chloride Lvl [95-109 108 mEq/L mEq/L] (07/18/14 7:53 PM) CO2 [24-32 mEq/L] 24 mEq/L (07/18/14 7:53 PM) AGAP [10.0-20.0 11.8 mEq/L mEq/L] (07/18/14 7:53 PM) CHEM PANEL Most recent to 1 oldest [Reference Range]: Creatinine Lvl 1.0 mg/dL [0.5-1.4 mg/dL] (07/18/14 7:53 PM) eGFR 73 mL/min/1.73m2 1 *NA* (07/18/14 7:53 PM) BUN [7-22 mg/dL] 10 mg/dL (07/18/14 7:53 PM) B/C Ratio [6-25] 10 (07/18/14 7:53 PM) Glucose Lvl [70-99 116 mg/dL 2 mg/dL] *HI* (07/18/14 7:53 PM) Total Protein 7.9 g/dL [6.4-8.4 g/dL] (07/18/14 7:53 PM) Albumin Lvl [3.5-5.0 3.8 g/dL g/dL] (07/18/14 7:53 PM) Globulin [2.0-4.0 4.1 g/dL g/dL] *HI* (07/18/14 7:53 PM) A/G Ratio [0.7-1.6] 0.9 (07/18/14 7:53 PM) Calcium Lvl 8.7 mg/dL [8.5-10.5 mg/dL] (07/18/14 7:53 PM) ALT [0-65 unit/L] 200 unit/L *HI* (07/18/14 7:53 PM) AST [0-37 unit/L] 197 unit/L *HI* (07/18/14 7:53 PM) Alk Phos [39-136 359 unit/L unit/L] *HI* (07/18/14 7:53 PM) Bili Total [0.2-1.3 0.5 mg/dL mg/dL] (07/18/14 7:53 PM) Amylase Lvl [25-115 50 unit/L unit/L] (07/18/14 7:53 PM) Lipase Lvl [73-393 101 unit/L unit/L] (07/18/14 7:53 PM) 1Result Comment: The eGFR is calculated using [...] from the National Kidney Disease Education Program ( NKDEP) which additionally recommends that when the eGFR is used in patients with extremes of body mass index for purposes of drug dosing, the eGFR should be mul tiplied by the estimated BMI. 2Interpretive Data: Adult reference range values reflect the clinical guidelines of the [place] [employer]. URINE CHEM Most recent to 1 oldest [Reference Range]: U Preg [Negative] Negative (07/18/14 7:53 PM) URINE AND STOOL Most recent to 1 oldest [Reference Range]: UA Turbidity [Clear] Clear (07/18/14 7:53 PM) UA Color Ltyellow *NA* (07/18/14 7:53 PM) UA pH [5.0-8.0] 6.0 (07/18/14 7:53 PM) UA Spec Grav 1.010 [<=1.030] (07/18/14 7:53 PM) UA Glucose [Negative Negative mg/dL mg/dL] *NA* (07/18/14 7:53 PM) UA Blood [Negative] Small *ABN* (07/18/14 7:53 PM) UA Ketones [Negative Negative mg/dL mg/dL] *NA* (07/18/14 7:53 PM) UA Protein [Negative Negative mg/dL mg/dL] (07/18/14 7:53 PM) UA Urobilinogen <=1.0 mg/dL [0.1-1.0 mg/dL] *NA* (07/18/14 7:53 PM) UA Bili [Negative] Negative *NA* (07/18/14 7:53 PM) UA Leuk Est Negative [Negative] (07/18/14 7:53 PM) UA Nitrite Negative [Negative] (07/18/14 7:53 PM) UA WBC [0-5 /HPF] 1 /HPF (07/18/14 7:53 PM) UA RBC [0-2 /HPF] 2 /HPF (07/18/14 7:53 PM) UA Sq Epi [Few /LPF] Occasional /LPF *NA* (07/18/14 7:53 PM) HEMATOLOGY Most recent to 1 oldest [Reference Range]: WBC [3.7-10.4 K/CMM] 8.2 K/CMM (07/18/14 7:53 PM) RBC [4.20-5.40 4.83 M/CMM M/CMM] (07/18/14 7:53 PM) Hgb [12.0-16.0 g/dL] 12.9 g/dL (07/18/14 7:53 PM) Hct [36.0-48.0 %] 38.8 % (07/18/14 7:53 PM) MCV [80.0-98.0 fL] 80.3 fL (07/18/14 7:53 PM) MCH [27.0-31.0 pg] 26.7 pg *LOW* (07/18/14 7:53 PM) MCHC [32.0-36.0 33.2 g/dL g/dL] (07/18/14 7:53 PM) RDW [11.5-14.5 %] 15.1 % *HI* (07/18/14 7:53 PM) Platelet [133-450 350 K/CMM K/CMM] (07/18/14 7:53 PM) MPV [7.4-10.4 fL] 8.4 fL (07/18/14 7:53 PM) Segs [45.0-75.0 %] 55.3 % (07/18/14 7:53 PM) Lymphocytes 35.6 % [20.0-40.0 %] (07/18/14 7:53 PM) Monocytes [2.0-12.0 6.3 % %] (07/18/14 7:53 PM) Eosinophils [0.0-4.0 2.0 % %] (07/18/14 7:53 PM) Basophils [0.0-1.0 0.8 % %] (07/18/14 7:53 PM) Segs-Bands # 4.5 K/CMM [1.5-8.1 K/CMM] (07/18/14 7:53 PM) Lymphocytes # 2.9 K/CMM [1.0-5.5 K/CMM] (07/18/14 7:53 PM) Monocytes # [0.0-0.8 0.5 K/CMM K/CMM] (07/18/14 7:53 PM) Eosinophils # 0.2 K/CMM [0.0-0.5 K/CMM] (07/18/14 7:53 PM) Basophils # [0.0-0.2 0.1 K/CMM K/CMM] (07/18/14 7:53 PM) Immunizations No data available for this section Procedures Procedure Date Related Diagnosis Body Site Laparoscopy 2006 Cholecystectomy Social History Social History Type Response Smoking Status Never smoker; Exposure to Tobacco Smoke None; Cigarette Smoking Last 365 Days No; Reg Smoking Cessation Counseling No Assessment and Plan No data available for this section
--- OUTSIDE RECORDS SUMMARY | 2018-05-01 11:12 | XMS REPORT ---
Author Author [facility] Address Unknown Phone Unavailable Care Team Providers Care In Service Education Teacher Name Role Phone Unavailable Unavailable Payers Payer Name Policy Type Policy Number Effective Date Expiration Date Problems This patient has no known problems. Allergies, Adverse Reactions, Alerts Allergy Name Allergy Type Status Severity Reaction(s) Onset Date Inactive Date Treating Clinician Comments No Known Allergies DA Active U 2011-11-07 00:00:00 Medications This patient has no known medications. Results Test Description Test Time Test Comments Text Results Atomic Results Result Comments LAMOTRIGINE 2018-04-26 14:16:00 LAMOTRIGINE (test code=LAMO) 7.7 ug/mL 2.0-20.0 This test was developed and its performance characteristicsdetermined by [employer]. It has not been cleared orapproved by the Food and Drug Administration. Detection Limit=1.0Performed At: [facility] [id number] Michelle MD Ph:[phone] [id number] 14:16:00* Test Item Value Reference Range Comments TOPIRIMATE (test code=TOPIR) None Detected ug/mL 2.0-25.0 This test was developed and its performance characteristicsdetermined by [employer]. It has not been cleared orapproved by the Food and Drug Administration. Detection Limit=1.0Performed At: [facility] [id number] Michelle MD Ph:[phone] [id number] 11:15:00* Test Item Value Reference Range Comments LAMOTRIGINE (test code=LAMO) 7.7 ug/mL 2.0-20.0 This test was developed and its performance characteristicsdetermined by [employer]. It has not been cleared orapproved by the Food and Drug Administration. Detection Limit=1.0Performed At: [facility] [place], [place] [id number] Sanjai MD Ph:[phone] [id number] 11:15:00* Test Item Value Reference Range Comments TOPIRIMATE (test code=TOPIR) - DUP VEIN [id number] 20:59:00 Name: [facility] : 1975 Age/S: 42 / F [address] [place], [place] [address] Unit #: [id number] Loc: [place] [address] Phys: Narayan Bess MD Acct: [id number] Dis Date: Status: ADM IN PHONE #: [phone] Exam Date: 04/23/2018 1359 FAX #: [phone] Reason: POSSIBLE DVT OF RIGHT LEG Report Has Been Amended EXAMS: CPT CODE: [id number] DUP VEIN RHYS 44468 Addendum - 04/23/2018 SIGNED 04/23/2018 ADDENDUM: [id number] /[id number] The original report inaccurately lists upper extremity venous Doppler. This is a right lower extremity venous Doppler. This addendum supersedes the previous report. RIGHT LOWER EXTREMITY VENOUS DUPLEX ULTRASOUND INDICATION: POSSIBLE DVT OF RIGHT LEG. RIGHT LEG WARMTH TO TOUCH WITH PAIN ON DORSIFLEXION. TECHNIQUE: Venous duplex hylton scale, color Doppler and spectral Doppler ultrasound of the right lower extremity was performed. COMPARISONS: None similar FINDINGS: The common femoral, superficial femoral, popliteal, and posterior tibial veins are completely compressible, reveal spontaneous and phasic flow and augmentation. The greater saphenous vein reveals no thrombus. IMPRESSION: 1. There is no right lower extremity DVT. at 2059 Reported and signed by: Alvarez Mon D.O. Report PROCEDURE: UNILATERAL UPPER EXTREMITY VENOUS ULTRASOUND INDICATION:Right leg pain and erythema COMPARISON:None. PAGE 1 Signed Report (CONTINUED) Name: [facility] : 1975 Age/S: 42 / F [address] [place] [address] Unit #: [id number] Loc: [place] [address] Phys: Narayan Bess MD Acct: [id number] Dis Date: Status: ADM IN PHONE #: [phone] Exam Date: 04/23/2018 135 FAX #: [phone] Reason: POSSIBLE DVT OF RIGHT LEG Report Has Been Amended EXAMS: CPT CODE: [id number] DUP VEIN RHYS 48771 <Continued> TECHNIQUE: Sonographic evaluation of the right upper extremity veins was performed using high resolution B-mode imaging, pulse and color Doppler imaging. FINDINGS: The internal jugular, subclavian, axillary, brachial, radial and ulnar veins are patent. The basilic and cephalic veins are patent. Normal venous waveforms. IMPRESSION: No deep venous thrombosis. Leg SL:01 at 1401 Reported and signed by: Khadar Canada M.D. CC: Mango Parks; Narayan Bess MD Technologist: Johanny Tavarez RDMS(AB) Trnscb Date/Time: 04/23/2018 (1401) Khai Orig Print D/T: S: 04/23/2018 (9949) Probe: PAGE 2 Signed Report - DUP VEIN [id number] 14:01:00 Name: [facility] : 1975 Age/S: 42 / F [address] [place] [address] Unit #: [id number] Loc: [place] [address] Phys: Karen Bess MD Acct: [id number] Di s Date: Status: ADM IN PHONE #: Exam Date: 04/23/2018 1354 FAX #: Reason: POSSIBLE DVT OF RIGHT LEG EXAMS: CPT CODE: [id number] DUP VEIN RHYS 86615 PROCEDURE: UNILATERAL UPPER EXTREMITY VENOUS ULTRASOUND INDICATION:Right leg pain and erythema COMPARISON:None. TECHNIQUE: Sonographic e valuation of the right upper extremity veins was performed using high reso lution B-mode imaging, pulse and color Doppler imaging. FIND INGS: The internal jugular, subclavian, axillary, brachial, radial and uln ar veins are patent. The basilic and cephalic veins are patent. Normal venous waveforms. IMPRESSION: No deep venous thrombos is. Leg SL:01 Electronically Sign ed by Darling Canada on 04/23/2018 at 1401 Reported and signed by: Mellissa Fang CC: Mango Parks; Narayan Bess MD Technologist: Johanny Tavarez RDMS(AB) Trnscb Nahum e/Time: 04/23/2018 (8071) tERROL Orig Print D/T: S: (7887) Probe: PAGE 1 S igned Report - CT ANGIO [id number] 16:31:00 Name: [facility] : 1975 Age/S: 42 / F [address] [place] [address] Blvd Unit #: [id number] Loc: [place] [address] Phys: Lele Cifuentes MD Acct: [id number] Di s Date: Status: ADM IN PHONE #: Exam Date: 04/22/2018 09 FAX #: Reason: vertigo EXAMS: CPT CODE: [id number] CT ANGIO NECK 39797 CTA HEAD, CTA NECK INDICATION:Vertigo, dizziness. TECHNIQUE: 100 mL Isovue-300 Iodinated intravenous contrast was administered. CT angiogram was perfo rmed of the head with axial, coronal and sagittal reconstructions. Maximu m intensity projections and three-dimensional reconstructions were reviewe d. CT angiogram of the neck was performed with axial, coronal an d sagittal reconstructions. Maximum intensity projections were revi ewed. Radiation dose length product 2617 mGy-cm. C OMPARISONS: CT brain 04/21/2018, 05/24/2011 FINDINGS: CTA HEAD: There is multifocal dental disease. The paranasal sinuses are clear as visualized. The mastoid air c ells and middle ears appear clear as visualized. There is no acute depressed skull fracture. There is a 2 mm calcified drusen of the right optic disc. The dural veins reveal no evidence of thrombosi s. The vertebral arteries reveal no aneurysm, dissection or high-g rade luminal stenosis. The basilar artery reveals no aneurys m, dissection, high-grade stenosis or occlusion. The posteri or cerebral arteries reveal no aneurysm, dissection or high-grade luminal stenosis. There is a right posterior communicating cerebral artery. The internal carotid arteries reveal no aneurysm, dissection or PAGE 1 Signed Report (CONTINUED) Name: [facility] : 1975 Age/S: 42 / F [address] [place] [address] Unit #: [id number] Loc: [place] [address] Phys: David Cifuentes MD Acct: [id number] Dis Date: Status: ADM IN PHONE #: [phone] Exam Date: 04/22/2018935 FAX #: [phone] Reason: vertigo EXAMS: CPT CODE: [id number] CT ANGIO NECK 54046 <Continued> high-grade luminal stenosis. The middle cerebral arteries reveal no aneurysm, dissection or high-grade luminal stenosis. The anterior cerebral arteries reveal no aneurysm, dissection or high-grade luminal stenosis. CTA NECK: There is no acute osseous fracture or dislocation. There is mild air trapping within the imaged lungs. There is no cervical lymphadenopathy, mass or or ganized fluid collection. The thyroid reveals no focal lesion. The aortic arch is normal. There is typical three-vessel configuration of the great vessel origins from the aortic arch. The brachioceph alic artery is widely patent. The subclavian arteries are widely p atent. The vertebral arteries reveal no aneurysm, dissection or leslie roger stenosis. The left vertebral artery is dominant. The bilateral common carotid and internal carotid arteries reveal no stenosis, dissection, aneurysm or occlusion. IMPRESSION: CTA HEAD: 1. There is no intracranial arterial occlusion, stenosis, d issection, aneurysm or vascular malformation. CTA NECK : 1. There is no cervical arterial occlusion, stenosis, dissection or aneurysm. CAROTID STENOSIS REFEREN CE USING NASCET CRITERIA: % ICA stenosis=(1-narrowest ICA diameter/diame ter of distal cervical PAGE 2 Signed Report (CONTINUED) Name: [facility] : 1975 Age/S: 42 / F [address] [place] [address] Unit #: [id number] Loc: [place] [address] Phys: David Cifuentes MD Acct: [id number] Dis Date: Status: ADM IN PHONE #: [phone] Exam Date: 04/22/2018 09 FAX #: [phone] Reason: vertigo EXAMS: CPT CODE: [id number] ANGIO NECK 39634 < Continued> ICA) x 100 -Mild: <50% stenosis -Moderate: 50-69% stenosis -Severe: 70-94% stenosis -Near occlusion: 95-99% stenosis -Occluded: 100% stenosis at 1631 Reported and signed by: Alvarez Mon D.O. CC: David Cifuentes MD Technologist:RT Kiki(R) CTDI: DLP: Trnscb Date/Time: 04/22/2018 (1630) [id number] Orig Print D/T: S: 04/22/2018 (1634) CTDI: DLP: PAGE 3 Signed Report - CT ANGIO [id number] 16:31:00 Name: [facility] : 1975 Age/S: 42 / F [address] [place] [address] Unit #: [id number] Loc: [place] [address] Phys: Lele Cifuentes MD Acct: [id number] Di s Date: Status: ADM IN PHONE #: Exam Date: 04/22/2018 0936 FAX #: Reason: vertigo EXAMS: CPT CODE: [id number] CT ANGIO HEAD 48178 CTA HEAD, CTA NECK INDICATION:Vertigo, dizziness. TECHNIQUE: 100 mL Isovue-300 Iodinated intravenous contrast was administered. CT angiogram was perfo rmed of the head with axial, coronal and sagittal reconstructions. Maximu m intensity projections and three-dimensional reconstructions were reviewe d. CT angiogram of the neck was performed with axial, coronal an d sagittal reconstructions. Maximum intensity projections were revi ewed. Radiation dose length product 2617 mGy-cm. C OMPARISONS: CT brain 04/21/2018, 05/24/2011 FINDINGS: CTA HEAD: There is multifocal dental disease. The paranasal sinuses are clear as visualized. The mastoid air c ells and middle ears appear clear as visualized. There is no acute depressed skull fracture. There is a 2 mm calcified drusen of the right optic disc. The dural veins reveal no evidence of thrombosi s. The vertebral arteries reveal no aneurysm, dissection or high-g rade luminal stenosis. The basilar artery reveals no aneurys m, dissection, high-grade stenosis or occlusion. The posteri or cerebral arteries reveal no aneurysm, dissection or high-grade luminal stenosis. There is a right posterior communicating cerebral artery. The internal carotid arteries reveal no aneurysm, dissection or PAGE 1 Signed Report (CONTINUED) Name: [facility] : 1975 Age/S: 42 / F [address] [place] [address] Blvd Unit #: [id number] Loc: [place] [address] Phys: David Cifuetnes MD Acct: [id number] Dis Date: Status: ADM IN PHONE #: Exam Date: 04/22/2018 0936 FAX #: [phone] Reason: vertigo EXAMS: CPT CODE: [id number] CT ANGIO HEAD 593[address] <Continued> high-grade luminal stenosis. The middle cerebral arteries reveal no aneurysm, dissection or high-grade luminal stenosis. The anterior cerebral arteries reveal no aneurysm, dissection or high-grade luminal stenosis. CTA NECK: There is no acute osseous fracture or dislocation. There is mild air trapping within the imaged lungs. There is no cervical lymphadenopathy, mass or or ganized fluid collection. The thyroid reveals no focal lesion. The aortic arch is normal. There is typical three-vessel configuration of the great vessel origins from the aortic arch. The brachioceph alic artery is widely patent. The subclavian arteries are widely p atent. The vertebral arteries reveal no aneurysm, dissection or leslie roger stenosis. The left vertebral artery is dominant. The bilateral common carotid and internal carotid arteries reveal no stenosis, dissection, aneurysm or occlusion. IMPRESSION: CTA HEAD: 1. There is no intracranial arterial occlusion, stenosis, d issection, aneurysm or vascular malformation. CTA NECK : 1. There is no cervical arterial occlusion, stenosis, dissection or aneurysm. CAROTID STENOSIS REFEREN CE USING NASCET CRITERIA: % ICA stenosis=(1-narrowest ICA diameter/diame ter of distal cervical PAGE 2 Signed Report (CONTINUED) Name: [facility] : 1975 Age/S: 42 / F [address] [place] [address] Blvd Unit #: [id number] Loc: [place] [address] Phys: David Cifuentes MD Acct: [id number] Dis Date: Status: ADM IN PHONE #: [phone] Exam Date: 04/22/2018935 FAX #: [phone] Reason: vertigo EXAMS: CPT CODE: [id number] ANGIO HEAD [address] < Continued> ICA) x 100 -Mild: <50% stenosis -Moderate: 50-69% stenosis -Severe: 70-94% stenosis -Near occlusion: 95-99% stenosis -Occluded: 100% stenosis at 1631 Reported and signed by: Alvarez Mon D.O. CC: David Cifuentes MD Technologist:RT Kiki(R) CTDI: DLP: Trnscb Date/Time: 04/22/2018 (163) [email or web address].[email or web address] Orig Print D/T: S: 04/22/2018 (1634) CTDI: DLP: PAGE 3 Signed Report [id number] 08:31:00* Test Item Value Reference Range Comments GLUBED (test code=GLUBED) 127 MG/DL 70-110 Performed by certified wastewater plant operator at [facility] COMPREHENSIVE METABOLIC [id number] 05:22:00* Test Item Value Reference Range Comments SODIUM (test code=NA) 141 mEq/L 134-147 POTASSIUM (test code=K) 3.5 mEq/L 3.4-5.0 CHLORIDE (test code=CL) 113 mEq/L 100-108 CARBON DIOXIDE (test code=CO2) 23 mEq/L 21-33 ANION GAP (test code=GAP) 9 0-20 GLUCOSE (test code=GLU) 118 mg/dL 70-110 BLOOD UREA NITROGEN (test code=BUN) 12 mg/dL 7-18 GLOMERULAR FILTRATION RATE (test code=GFR) 79.4 95-105 Units of measure=ml/min/1.73 m2 CREATININE (test code=CREAT) 0.8 mg/dL 0.6-1.3 TOTAL PROTEIN (test code=PROT) 6.9 g/dL 6.4-8.2 ALBUMIN (test code=ALB) 3.20 g/dL 3.4-5.0 CALCIUM (test code=CA) 8.2 mg/dL 8.0-10.5 BILIRUBIN TOTAL (test code=BILT) 0.30 mg/dL 0.0-1.0 SGOT/AST (test code=AST) 22 IUnit/L 15-37 SGPT/ALT (test code=ALT) 37 IUnit/L 15-65 ALKALINE PHOSPHATASE TOTAL (test code=ALKP) 176 IUnit/L 20-125 LIPID PROFILE (CORONARY RISK)2018-04-22 05:22:00* Test Item Value Reference Range Comments TRIGLYCERIDES (test code=TRIG) 147 mg/dL 40-150 CHOLESTEROL (test code=CHOL) 147 mg/dL <200 CHOLESTEROL/HDL RATIO (test code=CHOLHDL) 3.77 RATIO 3.27-4.44 RISK ASSOCIATED WITH CHOL/HDL RATIOS: RISK MALE FEMALE1/2 AVERAGE 3.43 3.27AVERAGE 4.97 4.442X AVERAGE 9.55 7.053X AVERAGE 23.39 11.04 NOTE THAT THE REFERENCE VALUE IS RELATEDTO RISK LEVELS RECOMMENDED BY THE NATL.HEART, LUNG, AND BLOOD INST. HDL CHOLESTEROL (test code=HDL) 39.0 mg/dL 39-96 LIPOPROTEIN LDL (test code=LDL) 90 mg/dL 0-100 <100 [id number] NEAR OPTIMAL/ABOVE [id number] HIGH>PW=959 VERY HIGH*Guidelines provided by the National Cholesterol EducationProgram Adult Treatment Panel III [id number] 05:22:00* Test Item Value Reference Range Comments MAGNESIUM (test code=MAG) 2.10 mg/dL 1.8-2.4 T4 [id number] 05:22:00* Test Item Value Reference Range Comments T4 FREE (test code=T4F) 1.0 ng/dL 0.77-1.61 THYROID STIMULATING [id number] 05:22:00* Test Item Value Reference Range Comments THYROID STIMULATING HORMONE (test code=TSH) 1.04 0.42-5.47 Results in alayna-International Units/mL HGBA1C%2018-04-22 05:22:00* Test Item Value Reference Range Comments HGBA1C% (test code=HGBA1C%) 6.8 %A1C 4.8-6.0 CBC W/AUTO [id number] 04:53:00* Test Item Value Reference Range Comments WHITE BLOOD CELL (test code=WBC) 7.91 x10 3/uL 4.5-11.0 RED BLOOD CELL (test code=RBC) 4.14 x10 6/uL 3.54-5.02 HEMOGLOBIN (test code=HGB) 11.7 g/dL 11.0-15.0 HEMATOCRIT (test code=HCT) 36.6 % 33.0-45.0 MEAN CELL VOLUME (test code=MCV) 88.4 fL 81.0-99.0 MEAN CELL HGB (test code=MCH) 28.3 pg 27.0-33.0 MEAN CELL HGB CONCETRATION (test code=MCHC) 32.0 g/dL 33.0-37.0 RED CELL DISTRIBUTION WIDTH CV (test code=RDW) 13.9 % 11.5-14.5 RED CELL DISTRIBUTION WIDTH SD (test code=RDW-SD) 45.0 fL 37.0-54.0 PLATELET COUNT (test code=PLT) 328 x10 3/uL 150-400 MEAN PLATELET VOLUME (test code=MPV) 9.6 fL 7.0-9.0 NEUTROPHIL % (test code=NT%) 52.4 % 56.0-77.0 IMMATURE GRANULOCYTE % (test code=IG%) 0.1 % 0.0-2.0 LYMPHOCYTE % (test code=LY%) 38.8 % 14.0-32.0 MONOCYTE % (test code=MO%) 7.3 % 4.8-9.0 EOSINOPHIL % (test code=EO%) 1.0 % 0.3-3.7 BASOPHIL % (test code=BA%) 0.4 % 0.0-2.0 NUCLEATED RBC % (test code=NRBC%) 0.0 % 0-0 NEUTROPHIL # (test code=NT#) 4.14 x10 3/uL 2.0-7.6 IMMATURE GRANULOCYTE # (test code=IG#) 0.01 x10 3/uL 0.00-0.03 LYMPHOCYTE # (test code=LY#) 3.07 x10 3/uL 1.0-3.8 MONOCYTE # (test code=MO#) 0.58 x10 3/uL 0.1-0.8 EOSINOPHIL # (test code=EO#) 0.08 x10 3/uL 0.0-0.2 BASOPHIL # (test code=BA#) 0.03 x10 3/uL 0.0-0.2 NUCLEATED RBC # (test code=NRBC#) 0.00 x10 3/uL 0.0-0.1 MANUAL DIFF REQUIRED (test code=MDIFF) NO - CT HEAD/BRAIN W/O [id number] 22:59:00 Name: [facility] : 1975 Age/S: 42 / F [address] [place] [address] Unit #: [id number] Loc: [place] [address] Phys: Marleny Modi NP Acct: [id number] Dis Date: Status: ADM IN PHONE #: [phone] Exam Date: 04/21/20182237 FAX #: [phone] Reason: Dizziness EXAMS: CPT CODE: [id number] CT HEAD/BRAIN W/O CONT 21182 PROCEDURE: CT BRAIN WITHOUT CONTRAST INDICATION: 42 years Female, Dizziness. COMPARISON: CT brain 05/24/2011 TECHNIQUE: Noncontrast helical images of the brain are obtained from the skull base to the vertex. DOSE: CT imaging performed at this location utilizes radiation dose optimization technique which includes one or more of the followin) Automated exposure control; 2) Adjustment of the mA and/or kV according to patient's size; 3) Use of iterative reconstruction techniques. DLP (mGy-cm): 420 FINDINGS: BRAIN: The ventricles are normal appearance without dilatation. Negative for acute hemorrhage, infarct, mass lesion, mass effect, or midline shift. CALVARIUM/SKULL BASE: No evidence of fracture or destructive bony lesion. Limited visualized paranasal sinuses are clear without air-fluid level or mucosal thickening. The mastoid air cells are clear. IMPRESSION: No acute intracranial abnormality. SL: JULIO CESAR at 2259 Reported and signed by: Aurelio Murphy M.D. CC: Robb Mayer MD; Marleny Modi NP Technologist:Julian Harp RT(R) CTDI: DLP: Trnscb Date/Time: 04/21/2018 (2812) [id number] Orig Print D/T: S: 04/21/2018 (9911) CTDI: DLP: PAGE 1 Signed Report URINALYSIS COMPLETE 2018-04-21 19:04:00* Test Item Value Reference Range Comments UA COLOR (test code=COLU) YELLOW YEL/STRAW UA APPEARANCE (test code=APPU) CLEAR CLEAR UA GLUCOSE DIPSTICK (test code=DGLUU) 1+ NEGATIVE UA BILIRUBIN DIPSTICK (test code=BILU) NEGATIVE NEGATIVE UA KETONE DIPSTICK (test code=KETU) NEGATIVE NEGATIVE UA SPECIFIC GRAVITY (test code=SGU) 1.011 1.005-1.030 UA BLOOD DIPSTICK (test code=VIRGILIO) 3+ NEGATIVE UA PH DIPSTICK (test code=ZENIA) 5.0 5.0-7.0 UA PROTEIN DIPSTICK (test code=PROU) NEGATIVE NEGATIVE UA UROBILINIOGEN DIPSTICK (test code=URO) 0.2 mg/dL 0.2-1.0 UA NITRITE DIPSTICK (test code=SHIRLENE) NEGATIVE NEGATIVE UA LEUKOCYTE ESTERASE DIPSTICK (test code=LEUU) NEGATIVE NEGATIVE UA WBC (test code=WBCU) 0-3 WBC/HPF 0-3 UA RBC (test code=RBCU) 21-50 RBC/HPF 0-3 UA BACTERIA (test code=BACU) 1+ /HPF NONE SEEN UA SQUAMOUS CELLS (test code=SQU) 0-5 /HPF NONE SEEN UA HYALINE CAST (test code=HYALU) 0-2 /LPF NONE SEEN UA MUCUS (test code=MUCU) 1+ /LPF NONE SEEN COMMENTS: Clean CatchBASIC METABOLIC [id number] 18:48:00* Test Item Value Reference Range Comments SODIUM (test code=NA) 138 mEq/L 134-147 POTASSIUM (test code=K) 3.4 mEq/L 3.4-5.0 CHLORIDE (test code=CL) 109 mEq/L 100-108 CARBON DIOXIDE (test code=CO2) 22 mEq/L 21-33 ANION GAP (test code=GAP) 10 0-20 GLUCOSE (test code=GLU) 159 mg/dL 70-110 BLOOD UREA NITROGEN (test code=BUN) 9 mg/dL 7-18 GLOMERULAR FILTRATION RATE (test code=GFR) 69.3 95-105 Units of measure=ml/min/1.73 m2 CREATININE (test code=CREAT) 0.9 mg/dL 0.6-1.3 CALCIUM (test code=CA) 8.9 mg/dL 8.0-10.5 [id number] 18:48:00* Test Item Value Reference Range Comments LIPASE (test code=LIP) 94 IUnit/L 73-393 CBC W/AUTO [id number] 18:42:00* Test Item Value Reference Range Comments WHITE BLOOD CELL (test code=WBC) 8.31 x10 3/uL 4.5-11.0 RED BLOOD CELL (test code=RBC) 4.72 x10 6/uL 3.54-5.02 HEMOGLOBIN (test code=HGB) 13.4 g/dL 11.0-15.0 HEMATOCRIT (test code=HCT) 41.0 % 33.0-45.0 MEAN CELL VOLUME (test code=MCV) 86.9 fL 81.0-99.0 MEAN CELL HGB (test code=MCH) 28.4 pg 27.0-33.0 MEAN CELL HGB CONCETRATION (test code=MCHC) 32.7 g/dL 33.0-37.0 RED CELL DISTRIBUTION WIDTH CV (test code=RDW) 13.6 % 11.5-14.5 RED CELL DISTRIBUTION WIDTH SD (test code=RDW-SD) 43.8 fL 37.0-54.0 PLATELET COUNT (test code=PLT) 392 x10 3/uL 150-400 MEAN PLATELET VOLUME (test code=MPV) 9.6 fL 7.0-9.0 NEUTROPHIL % (test code=NT%) 77.5 % 56.0-77.0 IMMATURE GRANULOCYTE % (test code=IG%) 0.2 % 0.0-2.0 LYMPHOCYTE % (test code=LY%) 19.5 % 14.0-32.0 MONOCYTE % (test code=MO%) 2.6 % 4.8-9.0 EOSINOPHIL % (test code=EO%) 0.0 % 0.3-3.7 BASOPHIL % (test code=BA%) 0.2 % 0.0-2.0 NUCLEATED RBC % (test code=NRBC%) 0.0 % 0-0 NEUTROPHIL # (test code=NT#) 6.43 x10 3/uL 2.0-7.6 IMMATURE GRANULOCYTE # (test code=IG#) 0.02 x10 3/uL 0.00-0.03 LYMPHOCYTE # (test code=LY#) 1.62 x10 3/uL 1.0-3.8 MONOCYTE # (test code=MO#) 0.22 x10 3/uL 0.1-0.8 EOSINOPHIL # (test code=EO#) 0.00 x10 3/uL 0.0-0.2 BASOPHIL # (test code=BA#) 0.02 x10 3/uL 0.0-0.2 NUCLEATED RBC # (test code=NRBC#) 0.00 x10 3/uL 0.0-0.1 MANUAL DIFF REQUIRED (test code=MDIFF) NO
--- OUTSIDE RECORDS SUMMARY | 2018-05-01 11:12 | XMS REPORT | CCD ---
Author Author Auto Generated Organization [facility] Address Unknown Phone Unavailable Care Team Providers Care Coding Auditor Name Role Phone Josse Thakur CP Allergies, Adverse Reactions, Alerts Substance Reaction Status NKDA Active Problem List Condition Effective Dates Status Gastritis Active Hiatal hernia Active Seizure Active Ulcer Active Medications Medication Instructions Start Date End Date Status [place] 5/325 oral 1-2 tab, PO, Q4-6H, PRN, 15 tab, 07/30/2012 08/04/2012 Ordered tablet Pain, Substitution Allowed, Maintenance [place] 5/325 oral 2 tab, Route: PO, Dosing Weight 07/30/2012 07/30/2012 Completed tablet 113.636, kg, ONCE, Start date: 07/30/12 18:32:00, Stop date: 07/30/12 18:32:00 Saline Flush 0.9% 5 ml, Route: IVP, Drug Form: INJ, 07/30/2012 07/31/2012 Discontinued Dosing Weight 113.636, kg, PRN, PRN Line Flush, Start date: 07/30/12 14:10:00, Duration: 30 day, Stop date: 08/29/12 14:09:00 Vital Signs Most recent to oldest [Reference Range]: 1 Height 165.1 cm (07/30/2012 13:47:00) Weight 113.636 kg (07/30/2012 13:47:00) Results URINALYSIS Most recent to oldest [Reference Range]: 1 UA Turbidity [Clear] Clear (07/30/2012 16:50:00) UA Color Ltyellow *NA* (07/30/2012 16:50:00) UA pH [5.0-8.0] 5.0 (07/30/2012 16:50:00) UA Spec Grav [<=1.030] 1.013 (07/30/2012 16:50:00) UA Glucose [Negative mg/dL] Negative mg/dL *NA* (07/30/2012 16:50:00) UA Blood [Negative] Moderate *ABN* (07/30/2012 16:50:00) UA Ketones [Negative mg/dL] Negative mg/dL *NA* (07/30/2012 16:50:00) UA Protein [Negative mg/dL] 100 mg/dL *ABN* (07/30/2012 16:50:00) UA Urobilinogen [0.1-1.0 mg/dL] <=1.0 mg/dL *NA* (07/30/2012 16:50:00) UA Bili [Negative] Negative *NA* (07/30/2012 16:50:00) UA Leuk Est [Negative] Negative (07/30/2012 16:50:00) UA Nitrite [Negative] Negative (07/30/2012 16:50:00) UA WBC [0-5 /HPF] 1 /HPF (07/30/2012 16:50:00) UA RBC [0-2 /HPF] 2 /HPF (07/30/2012 16:50:00) UA Bacteria [None Seen /HPF] Occasional /HPF *NA* (07/30/2012 16:50:00) UA Sq Epi [Few /LPF] Occasional /LPF *NA* (07/30/2012 16:50:00) UA Uric Ac Michelle [None Seen /HPF] Occasional /HPF *NA* (07/30/2012 16:50:00) UA Mucus [None Seen /LPF] Few /LPF *NA* (07/30/2012 16:50:00) CHEMISTRY Most recent to oldest [Reference Range]: 1 Sodium Lvl [135-145 mEq/L] 142 mEq/L (07/30/2012 14:14:00) Potassium Lvl [3.5-5.1 mEq/L] 3.7 mEq/L (07/30/2012 14:14:00) Chloride Lvl [95-109 mEq/L] 108 mEq/L (07/30/2012 14:14:00) CO2 [24-32 mEq/L] 13 mEq/L *LOW* (07/30/2012 14:14:00) AGAP [10.0-20.0 mEq/L] 24.7 mEq/L *HI* (07/30/2012 14:14:00) Creatinine Lvl [0.5-1.4 mg/dL] 1.2 mg/dL (07/30/2012 14:14:00) eGFR 59 mL/min/1.73m2 1 *NA* (07/30/2012 14:14:00) BUN [7-22 mg/dL] 10 mg/dL (07/30/2012 14:14:00) B/C Ratio [6-25] 8 (07/30/2012 14:14:00) Glucose Lvl [70-99 mg/dL] 181 mg/dL 2 *HI* (07/30/2012 14:14:00) Total Protein [6.4-8.4 g/dL] 8.5 g/dL *HI* (07/30/2012 14:14:00) Albumin Lvl [3.5-5.0 g/dL] 3.8 g/dL (07/30/2012 14:14:00) Globulin [2.0-4.0 g/dL] 4.7 g/dL *HI* (07/30/2012 14:14:00) A/G Ratio [0.7-1.6] 0.8 (07/30/2012 14:14:00) Calcium Lvl [8.5-10.5 mg/dL] 8.7 mg/dL (07/30/2012 14:14:00) ALT [0-65 unit/L] 88 unit/L *HI* (07/30/2012 14:14:00) AST [0-37 unit/L] 55 unit/L *HI* (07/30/2012 14:14:00) Alk Phos [39-136 unit/L] 255 unit/L *HI* (07/30/2012 14:14:00) Bili Total [0.2-1.3 mg/dL] 0.4 mg/dL (07/30/2012 14:14:00) U Amph Scr [Negative] Negative *NA* (07/30/2012 16:50:00) U Lynda Scr [Negative] Negative *NA* (07/30/2012 16:50:00) U Benzodia Scr [Negative] Negative *NA* (07/30/2012 16:50:00) U Cocaine Scr [Negative] Negative *NA* (07/30/2012 16:50:00) U Opiate Scr [Negative] Positive *ABN* (07/30/2012 16:50:00) U Phencyc Scr [Negative] Negative *NA* (07/30/2012 16:50:00) U Cannab Scr [Negative] Negative *NA* (07/30/2012 16:50:00) UDS Note See Note 3 (07/30/2012 16:50:00) 1Result Comment: The eGFR is calculated using [...] values reflect the clinical guidelines of the [place] [employer]. 3Interpretive Data: Drugs reported as positive have [...] Methadone 300 ng/mL Urine alcohol 20 mg/dL HEMATOLOGY Most recent to oldest [Reference Range]: 1 WBC [3.7-10.4 K/CMM] 21.3 K/CMM *HI* (07/30/2012 14:14:00) RBC [4.20-5.40 M/CMM] 5.12 M/CMM (07/30/2012 14:14:00) Hgb [12.0-16.0 g/dL] 14.1 g/dL (07/30/2012 14:14:00) Hct [36.0-48.0 %] 43.2 % (07/30/2012 14:14:00) MCV [81.0-99.0 fL] 84.2 fL (07/30/2012 14:14:00) MCH [27.0-31.0 pg] 27.5 pg (07/30/2012 14:14:00) MCHC [32.0-36.0 g/dL] 32.6 g/dL (07/30/2012 14:14:00) RDW [11.5-14.5 %] 14.2 % (07/30/2012 14:14:00) Platelet [133-450 K/CMM] 419 K/CMM (07/30/2012 14:14:00) MPV [7.4-10.4 fL] 8.7 fL (07/30/2012 14:14:00) Segs [45.0-75.0 %] 48.2 % (07/30/2012 14:14:00) Lymphocytes [20.0-40.0 %] 43.1 % *HI* (07/30/2012 14:14:00) Monocytes [2.0-12.0 %] 6.8 % (07/30/2012 14:14:00) Eosinophils [0.0-4.0 %] 1.5 % (07/30/2012 14:14:00) Basophils [0.0-1.0 %] 0.4 % (07/30/2012 14:14:00) Segs-Bands # [1.5-8.1 K/CMM] 10.2 K/CMM *HI* (07/30/2012 14:14:00) Lymphocytes # [1.0-5.5 K/CMM] 9.2 K/CMM *HI* (07/30/2012 14:14:00) Monocytes # [0.0-0.8 K/CMM] 1.4 K/CMM *HI* (07/30/2012 14:14:00) Eosinophils # [0.0-0.5 K/CMM] 0.3 K/CMM (07/30/2012 14:14:00) Basophils # [0.0-0.2 K/CMM] 0.1 K/CMM (07/30/2012 14:14:00) PT [12.0-14.7 seconds] 12.9 seconds (07/30/2012 14:14:00) INR [0.85-1.17] 0.95 4 (07/30/2012 14:14:00) PTT [22.9-35.8 seconds] 29.6 seconds 5 (07/30/2012 14:14:00) 4Interpretive Data: RECOMMENDED RANGES FOR PROTIME INR: 2.0-3.0 for most medical and surgical thromboembolic states. 2.5-3.5 for artificial heart valves and recurrent embolism. INR SHOULD BE USED ONLY FOR PATIENTS ON STABLE ANTICOAGULANT THERAPY. 5Interpretive Data: Heparin Therapeutic Range: 57 - 92 Seconds Procedures Procedures Date Related Diagnosis Cholecystectomy
--- OUTSIDE RECORDS SUMMARY | 2018-05-01 11:12 | XMS REPORT | CCD ---
Author Author Auto Generated Organization [facility] Address Unknown Phone Unavailable Care Team Providers Care Finance Lead Name Role Phone Leonard Ferreira CP Allergies, Adverse Reactions, Alerts Substance Reaction Status NKDA Active
--- OUTSIDE RECORDS SUMMARY | 2018-05-01 11:12 | XMS REPORT | CCD ---
Author Author Auto Generated Organization [facility] Address Unknown Phone Unavailable Care Team Providers Care Marketing Operations Coordinator Name Role Phone Leonard Ferreira CP Allergies, Adverse Reactions, Alerts Substance Reaction Status NKDA Active
--- OUTSIDE RECORDS SUMMARY | 2018-05-01 11:12 | XMS REPORT | Summary of Care ---
Author Author [facility] Organization [facility] Address Unknown Phone Unavailable Encounter [employer](KAT[employer]) [id number] Date(s): 03/13/15 - 03/13/15 [facility] [address] [place] [address]- Discharge Disposition: Home Attending Physician: Kaity Garza MD Referring Physician: Kaity Garza MD Vital Signs No data available for [...]
--- OUTSIDE RECORDS SUMMARY | 2018-05-01 11:12 | XMS REPORT | CCD ---
Author Author Auto Generated Organization [facility] Address Unknown Phone Unavailable Care Team Providers Care Human Services Program Specialist Name Role Phone Leonard Ferreira CP Allergies, Adverse Reactions, Alerts Substance Reaction Status NKDA Active Problem List Condition Effective Dates Status Gastritis Active Hiatal hernia Active Seizure Active Ulcer Active
--- NOTE | 2018-05-01 11:34 | NUR ---
ultrasound called by radiology
[2018-05-01] MEDS ORDERED: HYDROCODONE/APAP 5MG-325MG TAB PO ONE (11:45)
--- NOTE | 2018-05-01 12:15 | NUR ---
updated plan of care.
--- NOTE | 2018-05-01 13:31 | Diagnostic Imaging Report ---
EXAMINATION :right lower extremity venous Doppler exam. CLINICAL INDICATION: pain COMPARISON: none DISCUSSION: Rae scale, color Doppler and spectral waveform analysis of the right lower extremity deep venous system was performed. The right common femoral, superficial femoral and popliteal veins are compressible and demonstrate normal spontaneous phasic waveforms and normal response to augmentation. No filling defects are seen. IMPRESSION: No deep venous thrombosis above the right calf. Signed by: Dr. Jaydon Blue M.D. on 05/01/2018 1:28 PM
== END 2018-05-01 13:30 | disposition home or self-care (01) ==
LOC: FSED 11:09
DX: M79.661 Pain in right lower leg (principal); E78.00 Pure hypercholesterolemia, unspecified; D64.9 Anemia, unspecified; F32.9 Major depressive disorder, single episode, unspecified; G40.909 Epilepsy, unspecified, not intractable, without status epilepticus; E78.5 Hyperlipidemia, unspecified
CPT/HCPCS: 93971; 99283

== ENCOUNTER 2018-08-30 15:13 | Emergency (ER) | payer MEDICARE ==
[~2018-08-30] VITALS: Ht 157.5 cm; Wt 120.7 kg
--- OUTSIDE RECORDS SUMMARY | 2018-08-30 15:17 | XMS REPORT ---
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 Allergies, Adverse Reactions, Alerts Allergy Name Allergy Type Status Severity Reaction(s) Onset Date Inactive Date Treating Clinician Comments No Known Allergies DA Active U 2018-07-24 00:00:00 No Known Allergies DA Active U 2011-11-07 00:00:00 Medications This patient has no known medications. Encounters Start Date/Time End Date/Time Encounter Type Admission Type Attending Clinicians Care Facility Care Department Encounter ID 2018-08-15 11:07:03 Outpatient [facility] [id number] 2018-04-21 14:52:00 2018-04-21 14:52:00 Emergency E [facility] [id number] 2018-04-12 15:58:00 2018-04-12 15:58:00 Outpatient [facility] MED [id number] Results Test Description Test Time Test Comments Text Results Atomic Results Result Comments BASIC METABOLIC PANEL 2018-08-15 16:10:00 SODIUM (test code=NA) 140 mEq/L 134-147 POTASSIUM (test code=K) 3.8 mEq/L 3.4-5.0 CHLORIDE (test code=CL) 111 mEq/L 100-108 CARBON DIOXIDE (test code=CO2) 21 mEq/L 21-33 ANION GAP (test code=GAP) 12 0-20 GLUCOSE (test code=GLU) 101 mg/dL 70-110 BLOOD UREA NITROGEN (test code=BUN) 11 mg/dL 7-18 GLOMERULAR FILTRATION RATE (test code=GFR) 61.1 95-105 Units of measure=ml/min/1.73 m2 CREATININE (test code=CREAT) 1.0 mg/dL 0.6-1.3 CALCIUM (test code=CA) 8.7 mg/dL 8.0-10.5 HEPATIC FUNCTION [id number] 16:10:00* Test Item Value Reference Range Comments TOTAL PROTEIN (test code=PROT) 8.1 g/dL 6.4-8.2 ALBUMIN (test code=ALB) 3.80 g/dL 3.4-5.0 BILIRUBIN TOTAL (test code=BILT) 0.30 mg/dL 0.0-1.0 BILIRUBIN DIRECT (test code=BILD) < 0.10 MG/DL 0.0-0.30 BILIRUBIN INDIRECT (test code=BILIND) 0.20 MG/DL SGOT/AST (test code=AST) 22 IUnit/L 15-37 SGPT/ALT (test code=ALT) 32 IUnit/L 15-65 ALKALINE PHOSPHATASE TOTAL (test code=ALKP) 145 IUnit/L 20-125 [id number] 16:10:00* Test Item Value Reference Range Comments TROPONIN-I (test code=TROPI) < 0.015 ng/mL 0.000-0.045 Negative: <=0.045 Positive: >=0.046 Correlation with serial results, other cardiac markers andclinical findings is necessary to determine the clinicalsignificance of this result. Results using different methodologies should not be comparedto one another as quantitative results may vary by method. CBC W/AUTO [id number] 15:59:00* Test Item Value Reference Range Comments WHITE BLOOD CELL (test code=WBC) 6.71 x10 3/uL 4.5-11.0 RED BLOOD CELL (test code=RBC) 4.97 x10 6/uL 3.54-5.02 HEMOGLOBIN (test code=HGB) 14.1 g/dL 11.0-15.0 HEMATOCRIT (test code=HCT) 42.6 % 33.0-45.0 MEAN CELL VOLUME (test code=MCV) 85.7 fL 81.0-99.0 MEAN CELL HGB (test code=MCH) 28.4 pg 27.0-33.0 MEAN CELL HGB CONCETRATION (test code=MCHC) 33.1 g/dL 33.0-37.0 RED CELL DISTRIBUTION WIDTH CV (test code=RDW) 13.2 % 11.5-14.5 RED CELL DISTRIBUTION WIDTH SD (test code=RDW-SD) 41.1 fL 37.0-54.0 PLATELET COUNT (test code=PLT) 340 x10 3/uL 150-400 MEAN PLATELET VOLUME (test code=MPV) 9.7 fL 7.0-9.0 NEUTROPHIL % (test code=NT%) 49.0 % 56.0-77.0 IMMATURE GRANULOCYTE % (test code=IG%) 0.3 % 0.0-2.0 LYMPHOCYTE % (test code=LY%) 42.3 % 14.0-32.0 MONOCYTE % (test code=MO%) 6.4 % 4.8-9.0 EOSINOPHIL % (test code=EO%) 1.6 % 0.3-3.7 BASOPHIL % (test code=BA%) 0.4 % 0.0-2.0 NUCLEATED RBC % (test code=NRBC%) 0.0 % 0-0 NEUTROPHIL # (test code=NT#) 3.28 x10 3/uL 2.0-7.6 IMMATURE GRANULOCYTE # (test code=IG#) 0.02 x10 3/uL 0.00-0.03 LYMPHOCYTE # (test code=LY#) 2.84 x10 3/uL 1.0-3.8 MONOCYTE # (test code=MO#) 0.43 x10 3/uL 0.1-0.8 EOSINOPHIL # (test code=EO#) 0.11 x10 3/uL 0.0-0.2 BASOPHIL # (test code=BA#) 0.03 x10 3/uL 0.0-0.2 NUCLEATED RBC # (test code=NRBC#) 0.00 x10 3/uL 0.0-0.1 MANUAL DIFF REQUIRED (test code=MDIFF) NO URINALYSIS [id number] 13:54:00* Test Item Value Reference Range Comments UA COLOR (test code=COLU) STRAW YEL/STRAW UA APPEARANCE (test code=APPU) CLEAR CLEAR UA GLUCOSE DIPSTICK (test code=DGLUU) NEGATIVE NEGATIVE UA BILIRUBIN DIPSTICK (test code=BILU) NEGATIVE NEGATIVE UA KETONE DIPSTICK (test code=KETU) NEGATIVE NEGATIVE UA SPECIFIC GRAVITY (test code=SGU) 1.004 1.005-1.030 UA BLOOD DIPSTICK (test code=VIRGILIO) NEGATIVE NEGATIVE UA PH DIPSTICK (test code=ZENIA) 6.0 5.0-7.0 UA PROTEIN DIPSTICK (test code=PROU) NEGATIVE NEGATIVE UA UROBILINIOGEN DIPSTICK (test code=URO) 0.2 mg/dL 0.2-1.0 UA NITRITE DIPSTICK (test code=SHIRLENE) NEGATIVE NEGATIVE UA LEUKOCYTE ESTERASE DIPSTICK (test code=LEUU) NEGATIVE NEGATIVE UA WBC (test code=WBCU) 0-3 WBC/HPF 0-3 UA RBC (test code=RBCU) 0-3 RBC/HPF 0-3 UA BACTERIA (test code=BACU) NONE SEEN /HPF NONE SEEN UA SQUAMOUS CELLS (test code=SQU) 0-5 /HPF NONE SEEN COMMENTS: Clean Catch- CT ABD PELVIS W/O [id number] 18:30:00 Name: SANTA MAYNARD [facility] : 1975 Age/S: 42 / F [address] [place] [address] Unit #: [id number] Loc: [place] [address] Phys: Demario He DRILLING ASSISTANT Acct: [id number] Di s Date: Status: REG ER PHONE #: [phone] Exam Date: 07/24/2018 1814 FAX #: Reason: left flank/cva pain; renal stone protocol EXAMS: CPT CODE: [id number] CT ABD PELVIS W/O CONT 51568 Clinical Indication: left flank/cva pain; renal stone protocol Comparison: None TECHN IQUE: Helical imaging was performed without injection of IV contrast, from the lung base through the symphysis with multiplanar reformations obtaine d. IV CONTRAST: No IV contrast was administered. GI CONTRAST: No ora l contrast was administered. DLP: 1139 mGy-cm FINDINGS: Evaluations of the internal organs are limited due to the lack of IV contrast. ABDOMEN AND PELVIS WITHOUT CONTRAST: LUNG BASE: The lung bases are clear. LIVER: The liver has normal contour and is unremarkable. GALLBLADDER: The gallbladder has been surgically removed. PANCREAS: The pancreas is unremarkable. SPLEEN: The spleen is unremarkable. ADRENALS: The right a drenal gland is unremarkable. The left adrenal gland is unremarkable. KIDNEYS: There is no evidence of renal or ureteral calculi. There is no evidence of hydronephrosis. BOWEL: The visualized portion of the esophagus is unremarkable. The stomach is unremarkable. The small bowel is normal in caliber and there is no evidence of masses or obstru ction. The colon is normal in caliber without any masses. Large amount o f stool is seen throughout the colon. APPENDIX: The appendix is nonvisualized and there are no inflammatory changes near the cecum to suggest an acute appendicitis. PELVIS: There are no pelvic mass. T he urinary bladder is normal. The uterus and ovaries are unremarkable. PAGE 1 Signed Report (CONTIN UED) Name: SANTA MAYNARD [facility] : 1975 Age/S: 42 / F [address] [place] [address] Unit #: [id number] Loc: [place] [address] Phys: Natividad He Acct: [id number] Dis Date: Status: REG ER PHONE #: [phone] Exam Date: 07/24/2018 1814 FAX #: [phone] Reason: left flank/cva pain; renal stone protocol EXAMS: CPT CODE: [id number] CT ABD P ABISAI W/O CONT 39286 <Continued> PERITONEUM: There is no evidence for free intraperitoneal fluid or air. SOFT TISSUES: The soft tissues are unremarkable. There is no evidence of masses or hernias. LYMPH NODES: There is no evidence of mesenteric, retroperitoneal, or inguinal lymphadenopathy. VASCULATURE: The abdominal aorta is normal in caliber. MUS CULOSKELETAL: No aggressive bone lesions are seen. IMPRESSION: No evidence of nephrolithiasis or obstructive ureterolithiasis. Constipation. Cholecystectomy. SL: [id number] 19 at 1830 Reported and signed by: Rishi Cruz M.D. CC: Natividad Zamora MD Technol ogist:Mellissa Burton, RT(R)(CT) CTDI: DLP: Trnscb Date/Time: 07/24/2018 (183) RaulLNV Orig Print D/T: S: 07/24/2018 (183) PAGE 2 Signed Report - CT ABD PELVIS W/O [id number] 18:30:00 Name: SANTA MAYNARD [facility] [place] : 1975 Age/S: 42 / F [address] [place] [address] Unit #: [id number] Loc: [place] [address] Phys: Natividad He DRILLING ASSISTANT Acct: [id number] Dis Date: Status: DEP ER PHONE #: [phone] Exam Date: 07/24/20181813 FAX #: [phone] Reason: left flank/cva pain; renal stone protocol EXAMS: CPT CODE: [id number] CT ABD PELVIS W/O CONT 70643 Clinical Indication: left flank/cva pain; renal stone protocol Comparison: None TECHNIQUE: Helical imaging was performed without injection of IV contrast, from the lung base through the symphysis with multiplanar reformations obtained. IV CONTRAST: No IV contrast was administered. GI CONTRAST: No oral contrast was administered. DLP: 1139 mGy-cm FINDINGS: Evaluations of the internal organs are limited due to the lack of IV contrast. ABDOMEN AND PELVIS WITHOUT CONTRAST: LUNG BASE: The lung bases are clear. LIVER: The liver has normal contour and is unremarkable. GALLBLADDER: The gallbladder has been surgically removed. PANCREAS: The pancreas is unremarkable. SPLEEN: The spleen is unremarkable. ADRENALS: The right a drenal gland is unremarkable. The left adrenal gland is unremarkable. KIDNEYS: There is no evidence of renal or ureteral calculi. There is no evidence of hydronephrosis. BOWEL: The visualized portion of the esophagus is unremarkable. The stomach is unremarkable. The small bowel is normal in caliber and there is no evidence of masses or obstru ction. The colon is normal in caliber without any masses. Large amount o f stool is seen throughout the colon. APPENDIX: The appendix is nonvisualized and there are no inflammatory changes near the cecum to suggest an acute appendicitis. PELVIS: There are no pelvic mass. T he urinary bladder is normal. The uterus and ovaries are unremarkable. PAGE 1 Signed Report (CONTIN UED) Name: SANTA MAYNARD [facility] Debra Galvan : 1975 Age/S: 42 / F [address] [place] [address] Unit #: [id number] Loc: [place] [address] Phys: Natividad He Acct: [id number] Dis Date: Status: DEP ER PHONE #: [phone] Exam Date: 07/24/2018 1814 FAX #: [phone] Reason: left flank/cva pain; renal stone protocol EXAMS: CPT CODE: [id number] CT ABD P ABISAI W/O CONT 80373 <Continued> PERITONEUM: There is no evidence for free intraperitoneal fluid or air. SOFT TISSUES: The soft tissues are unremarkable. There is no evidence of masses or hernias. LYMPH NODES: There is no evidence of mesenteric, retroperitoneal, or inguinal lymphadenopathy. VASCULATURE: The abdominal aorta is normal in caliber. MUS CULOSKELETAL: No aggressive bone lesions are seen. IMPRESSION: No evidence of nephrolithiasis or obstructive ureterolithiasis. Constipation. Cholecystectomy. SL: [id number] 19 at 1830 Reported and signed by: Rishi Cruz M.D. CC: Natividad He; Rafa Zamora MD Technol ogist:Mellissa Burton, RT(R)(CT) CTDI: DLP: Trnscb Date/Time: 07/24/2018 (1830) LizR.LNV Orig Print D/T: S: 07/24/2018 (1833) PAGE 2 Signed Report COMPREHENSIVE METABOLIC [id number] 18:10:00* Test Item Value Reference Range Comments SODIUM (test code=NA) 139 mEq/L 134-147 POTASSIUM (test code=K) 3.3 mEq/L 3.4-5.0 CHLORIDE (test code=CL) 108 mEq/L 100-108 CARBON DIOXIDE (test code=CO2) 23 mEq/L 21-33 ANION GAP (test code=GAP) 11 0-20 GLUCOSE (test code=GLU) 118 mg/dL 70-110 BLOOD UREA NITROGEN (test code=BUN) 11 mg/dL 7-18 GLOMERULAR FILTRATION RATE (test code=GFR) 61.4 95-105 Units of measure=ml/min/1.73 m2 CREATININE (test code=CREAT) 1.0 mg/dL 0.6-1.3 TOTAL PROTEIN (test code=PROT) 8.3 g/dL 6.4-8.2 ALBUMIN (test code=ALB) 3.70 g/dL 3.4-5.0 CALCIUM (test code=CA) 8.6 mg/dL 8.0-10.5 BILIRUBIN TOTAL (test code=BILT) 0.30 mg/dL 0.0-1.0 SGOT/AST (test code=AST) 21 IUnit/L 15-37 SGPT/ALT (test code=ALT) 43 IUnit/L 15-65 ALKALINE PHOSPHATASE TOTAL (test code=ALKP) 203 IUnit/L 20-125 BILIRUBIN [id number] 18:10:00* Test Item Value Reference Range Comments BILIRUBIN DIRECT (test code=BILD) < 0.10 MG/DL 0.0-0.30 [id number] 18:10:00* Test Item Value Reference Range Comments LIPASE (test code=LIP) 121 IUnit/L 73-393 HCG SERUM [id number] 18:10:00* Test Item Value Reference Range Comments HCG SERUM QUAL (test code=HCGQL) SERUM NEGATIVE NEGATIVE COMPREHENSIVE METABOLIC [id number] 18:08:00* Test Item Value Reference Range Comments SODIUM (test code=NA) 139 mEq/L 134-147 POTASSIUM (test code=K) 3.3 mEq/L 3.4-5.0 CHLORIDE (test code=CL) 108 mEq/L 100-108 CARBON DIOXIDE (test code=CO2) 23 mEq/L 21-33 ANION GAP (test code=GAP) 11 0-20 GLUCOSE (test code=GLU) 118 mg/dL 70-110 BLOOD UREA NITROGEN (test code=BUN) 11 mg/dL 7-18 GLOMERULAR FILTRATION RATE (test code=GFR) 61.4 95-105 Units of measure=ml/min/1.73 m2 CREATININE (test code=CREAT) 1.0 mg/dL 0.6-1.3 TOTAL PROTEIN (test code=PROT) g/dL 6.4-8.2 ALBUMIN (test code=ALB) 3.70 g/dL 3.4-5.0 CALCIUM (test code=CA) 8.6 mg/dL 8.0-10.5 BILIRUBIN TOTAL (test code=BILT) mg/dL 0.0-1.0 SGOT/AST (test code=AST) 21 IUnit/L 15-37 SGPT/ALT (test code=ALT) 43 IUnit/L 15-65 ALKALINE PHOSPHATASE TOTAL (test code=ALKP) IUnit/L 20-125 BILIRUBIN [id number] 18:08:00* Test Item Value Reference Range Comments BILIRUBIN DIRECT (test code=BILD) < 0.10 MG/DL 0.0-0.30 [id number] 18:08:00* Test Item Value Reference Range Comments LIPASE (test code=LIP) 121 IUnit/L 73-393 HCG SERUM [id number] 18:08:00* Test Item Value Reference Range Comments HCG SERUM QUAL (test code=HCGQL) SERUM NEGATIVE NEGATIVE COMPREHENSIVE METABOLIC [id number] 18:05:00* Test Item Value Reference Range Comments SODIUM (test code=NA) mEq/L 134-147 POTASSIUM (test code=K) mEq/L 3.4-5.0 CHLORIDE (test code=CL) mEq/L 100-108 CARBON DIOXIDE (test code=CO2) mEq/L 21-33 ANION GAP (test code=GAP) 0-20 GLUCOSE (test code=GLU) mg/dL 70-110 BLOOD UREA NITROGEN (test code=BUN) mg/dL 7-18 GLOMERULAR FILTRATION RATE (test code=GFR) 95-105 CREATININE (test code=CREAT) mg/dL 0.6-1.3 TOTAL PROTEIN (test code=PROT) g/dL 6.4-8.2 ALBUMIN (test code=ALB) g/dL 3.4-5.0 CALCIUM (test code=CA) mg/dL 8.0-10.5 BILIRUBIN TOTAL (test code=BILT) mg/dL 0.0-1.0 SGOT/AST (test code=AST) IUnit/L 15-37 SGPT/ALT (test code=ALT) IUnit/L 15-65 ALKALINE PHOSPHATASE TOTAL (test code=ALKP) IUnit/L 20-125 BILIRUBIN [id number] 18:05:00* Test Item Value Reference Range Comments BILIRUBIN DIRECT (test code=BILD) MG/DL 0.0-0.30 [id number] 18:05:00* Test Item Value Reference Range Comments LIPASE (test code=LIP) IUnit/L 73-393 HCG SERUM [id number] 18:05:00* Test Item Value Reference Range Comments HCG SERUM QUAL (test code=HCGQL) SERUM NEGATIVE NEGATIVE URINALYSIS [id number] 17:59:00* Test Item Value Reference Range Comments UA COLOR (test code=COLU) YELLOW YEL/STRAW UA APPEARANCE (test code=APPU) CLEAR CLEAR UA GLUCOSE DIPSTICK (test code=DGLUU) NEGATIVE NEGATIVE UA BILIRUBIN DIPSTICK (test code=BILU) NEGATIVE NEGATIVE UA KETONE DIPSTICK (test code=KETU) NEGATIVE NEGATIVE UA SPECIFIC GRAVITY (test code=SGU) 1.013 1.005-1.030 UA BLOOD DIPSTICK (test code=VIRGILIO) NEGATIVE NEGATIVE UA PH DIPSTICK (test code=ZENIA) 6.0 5.0-7.0 UA PROTEIN DIPSTICK (test code=PROU) NEGATIVE NEGATIVE UA UROBILINIOGEN DIPSTICK (test code=URO) 0.2 mg/dL 0.2-1.0 UA NITRITE DIPSTICK (test code=SHIRLENE) NEGATIVE NEGATIVE UA LEUKOCYTE ESTERASE DIPSTICK (test code=LEUU) NEGATIVE NEGATIVE UA WBC (test code=WBCU) NONE SEEN WBC/HPF 0-3 UA RBC (test code=RBCU) 0-3 RBC/HPF 0-3 UA BACTERIA (test code=BACU) TRACE /HPF NONE SEEN UA SQUAMOUS CELLS (test code=SQU) 0-5 /HPF NONE SEEN UA RENAL CELLS (test code=HOLLAND) TRACE /HPF NONE SEEN UA MUCUS (test code=MUCU) TRACE /LPF NONE SEEN COMMENTS: Clean CatchCBC W/AUTO [id number] 17:53:00* Test Item Value Reference Range Comments WHITE BLOOD CELL (test code=WBC) 10.48 x10 3/uL 4.5-11.0 RED BLOOD CELL (test code=RBC) 4.79 x10 6/uL 3.54-5.02 HEMOGLOBIN (test code=HGB) 13.6 g/dL 11.0-15.0 HEMATOCRIT (test code=HCT) 41.0 % 33.0-45.0 MEAN CELL VOLUME (test code=MCV) 85.6 fL 81.0-99.0 MEAN CELL HGB (test code=MCH) 28.4 pg 27.0-33.0 MEAN CELL HGB CONCETRATION (test code=MCHC) 33.2 g/dL 33.0-37.0 RED CELL DISTRIBUTION WIDTH CV (test code=RDW) 13.2 % 11.5-14.5 RED CELL DISTRIBUTION WIDTH SD (test code=RDW-SD) 41.6 fL 37.0-54.0 PLATELET COUNT (test code=PLT) 386 x10 3/uL 150-400 MEAN PLATELET VOLUME (test code=MPV) 9.5 fL 7.0-9.0 NEUTROPHIL % (test code=NT%) 47.9 % 56.0-77.0 IMMATURE GRANULOCYTE % (test code=IG%) 0.5 % 0.0-2.0 LYMPHOCYTE % (test code=LY%) 42.7 % 14.0-32.0 MONOCYTE % (test code=MO%) 6.6 % 4.8-9.0 EOSINOPHIL % (test code=EO%) 1.9 % 0.3-3.7 BASOPHIL % (test code=BA%) 0.4 % 0.0-2.0 NUCLEATED RBC % (test code=NRBC%) 0.0 % 0-0 NEUTROPHIL # (test code=NT#) 5.02 x10 3/uL 2.0-7.6 IMMATURE GRANULOCYTE # (test code=IG#) 0.05 x10 3/uL 0.00-0.03 LYMPHOCYTE # (test code=LY#) 4.48 x10 3/uL 1.0-3.8 MONOCYTE # (test code=MO#) 0.69 x10 3/uL 0.1-0.8 EOSINOPHIL # (test code=EO#) 0.20 x10 3/uL 0.0-0.2 BASOPHIL # (test code=BA#) 0.04 x10 3/uL 0.0-0.2 NUCLEATED RBC # (test code=NRBC#) 0.00 x10 3/uL 0.0-0.1 MANUAL DIFF REQUIRED (test code=MDIFF) NO US LOW EXT VEINS LIMITED [id number] 13:26:00 [facility] [address] [address] Patient Name: SANTA MAYNARD MR #: [id number] : 1975 Age/Sex: 42/F Req #: [id number] Adm Physician: Ordered by: NILAM INGRAM MD Report #: [id number] Location: [facility] Room/Bed: Procedure: [id number] HOPD/US LOW EXT VEINS LIMITED UNI Exam Date: 05/01/18 Exam Time: 1225 REPORT STATUS: S igned EXAMINATION :right lower extremity venous Doppler exam. CLINICAL INDICATION: pain COMPARISON: none DISCUSSION: Rae scale, color Doppl er and spectral waveform analysis of the right lower extremity deep venous sys tem was performed. The right common femoral, superficial femoral and popliteal veins are compressible and demonstrate normal spontaneous phasic waveforms and normal response to augmentation. No filling defects are seen. IMPRESSI ON: No deep venous thrombosis above the right calf. Si gned by: Dr. Walter Scott M.D. on 05/01/2018 1:28 PM Dictated By: GREYSON SCOTT MD 1328 Transcribed By: MEHDI on 05/01/188 COPY TO: NILAM INGRAM MD [id number] 14:16:00* Test Item Value Reference Range Comments LAMOTRIGINE (test code=LAMO) 7.7 ug/mL 2.0-20.0 This test was developed and its performance characteristicsdetermined by [employer]. It has not been cleared orapproved by the Food and Drug Administration. Detection Limit=1.0Performed At: [address] [place] [id number] Sanjai MD Ph:[phone] [id number] 14:16:00* Test Item Value Reference Range Comments TOPIRIMATE (test code=TOPIR) None Detected ug/mL 2.0-25.0 This test was developed and its performance characteristicsdetermined by [employer]. It has not been cleared orapproved by the Food and Drug Administration. Detection Limit=1.0Performed At: [facility] [id number] Michelle MD Ph:[phone] [id number] 11:15:00* Test Item Value Reference Range Comments LAMOTRIGINE (test code=LAMO) 7.7 ug/mL 2.0-20.0 This test was developed and its performance characteristicsdetermined by [employer]. It has not been cleared orapproved by the Food and Drug Administration. Detection Limit=1.0Performed At: [facility] [id number] Michelle MD Ph:[phone] [id number] 11:15:00* Test Item Value Reference Range Comments TOPIRIMATE (test code=TOPIR) - DUP VEIN [id number] 20:59:00 Name: SANTA MAYNARD [facility] : 1975 Age/S: 42 / F [address] [place] [address] Unit #: [id number] Loc: [place] [address] Phys: Narayan Bess MD Acct: [id number] Dis Date: Status: ADM IN PHONE #: [phone] Exam Date: 04/23/2018 1359 FAX #: [phone] Reason: POSSIBLE DVT OF RIGHT LEG Report Has Been Amended EXAMS: CPT CODE: [id number] DUP VEIN RHYS 43101 Addendum - 04/23/2018 SIGNED 04/23/2018 ADDENDUM: [id number] The original report inaccurately lists upper extremity venous Doppler. This is a right lower extremity venous Doppler. This addendum supersedes the previous report. RIGHT LOWER EXTREMITY VENOUS DUPLEX ULTRASOUND INDICATION: POSSIBLE DVT OF RIGHT LEG. RIGHT LEG WARMTH TO TOUCH WITH PAIN ON DORSIFLEXION. TECHNIQUE: Venous duplex rae scale, color Doppler and spectral Doppler ultrasound [...] 1 Signed Report (CONTINUED) Name: SANTA MAYNARD [facility] : 1975 Age/S: 42 / F [address] [place] [address] Unit #: [id number] Loc: [place] [address] Phys: Narayan Bess MD Acct: [id number] Dis Date: Status: ADM IN PHONE #: [phone] Exam Date: 04/23/2018 1359 FAX #: [phone] Reason: POSSIBLE DVT OF RIGHT LEG Report Has Been Amended EXAMS: CPT CODE: [id number] DUP VEIN RHYS 07983 <Continued> TECHNIQUE: Sonographic evaluation of the right upper extremity veins was performed using high resolution B-mode imaging, pulse and color Doppler imaging. FINDINGS: The internal jugular, subclavian, axillary, brachial, radial and ulnar veins are patent. The basilic and cephalic veins are patent. Normal venous waveforms. IMPRESSION: No deep venous thrombosis. Leg SL:01 at 1401 Reported and signed by: Khadar Canada M.D. CC: Mango Bess MD Technologist: Johanny Tavarez RDMS(AB) Trnscb Date/Time: 04/23/2018 (1401) Khai Orig Print D/T: S: 04/23/2018 (3311) Probe: PAGE 2 Signed Report - DUP VEIN [id number] 14:01:00 Name: SANTA MAYNARD [facility] : 1975 Age/S: 42 / F [address] [place] [address] Unit #: [id number] Loc: [place] [address] Phys: Karen Bess MD Acct: [id number] Di s Date: Status: ADM IN PHONE #: Exam Date: 04/23/2018 1359 FAX #: Reason: POSSIBLE DVT OF RIGHT LEG EXAMS: CPT CODE: [id number] DUP VEIN RHYS 90006 PROCEDURE: UNILATERAL UPPER EXTREMITY VENOUS ULTRASOUND INDICATION:Right [...] Johanny Tavarez RDMS(AB) Trnscb Nahum e/Time: 04/23/2018 (1401) Khai Orig Print D/T: S: (8814) Probe: PAGE 1 S igned Report - CT ANGIO [id number] 16:31:00 Name: SANTA MAYNARD [facility] : 1975 Age/S: 42 / F [address] [place] [address] Unit #: [id number] Loc: [place] [address] Phys: Lele Cifuentes MD Acct: [id number] Di s Date: Status: ADM IN PHONE #: Exam Date: 04/22/2018 0936 FAX #: Reason: vertigo EXAMS: CPT CODE: [id number] CT ANGIO NECK [address] CTA HEAD, CTA NECK INDICATION:Vertigo, dizziness. TECHNIQUE: [...] 1 Signed Report (CONTINUED) Name: [facility] : 1975 Age/S: 42 / F [address] [place] [address] Unit #: [id number] Loc: [place] [address] Phys: David Cifuentes MD Acct: [id number] Dis Date: Status: ADM IN PHONE #: Exam Date: 04/22/2018 09 FAX #: [phone] Reason: vertigo EXAMS: CPT CODE: [id number] CT ANGIO NECK [address] <Continued> high-grade luminal stenosis. The middle cerebral [...] 2 Signed Report (CONTINUED) Name: [facility] : 1975 Age/S: 42 / F [address] [place] [address] Unit #: [id number] Loc: [facility] [address] Phys: David Cifuentes MD Acct: [id number] Dis Date: Status: ADM IN PHONE #: [phone] Exam Date: 04/22/2018935 FAX #: [phone] Reason: vertigo EXAMS: CPT CODE: [id number] ANGIO NECK [address] < Continued> ICA) x 100 -Mild: <50% stenosis -Moderate: 50-69% stenosis -Severe: 70-94% stenosis -Near occlusion: 95-99% stenosis -Occluded: 100% stenosis at 1631 Reported and signed by: Alvarez Mon D.O. CC: David Cifuentes MD Technologist:Kevin Zimmerman, RT(R) CTDI: DLP: Trnscb Date/Time: 04/22/2018 (1630) [id number] Orig Print D/T: S: 04/22/2018 (1633) CTDI: DLP: PAGE 3 Signed Report - CT ANGIO [id number] 16:31:00 Name: [facility] : 1975 Age/S: 42 / F [address] [place] [address] Unit #: [id number] Loc: [facility] [place] [address] Phys: Lele Cifuentes MD Acct: [id number] Di s Date: Status: ADM IN PHONE #: Exam Date: 04/22/2018935 FAX #: Reason: vertigo EXAMS: CPT CODE: [id number] CT ANGIO HEAD [address]679 CTA HEAD, CTA NECK INDICATION:Vertigo, dizziness. TECHNIQUE: [...] 1 Signed Report (CONTINUED) Name: [facility] : 1975 Age/S: 42 / F [address] [place] [address] Unit #: [id number] Loc: [place] [address] Phys: David Cifuentes MD Acct: [id number] Dis Date: Status: ADM IN PHONE #: Exam Date: 04/22/2018935 FAX #: [phone] Reason: vertigo EXAMS: CPT CODE: [id number] CT ANGIO HEAD [address] <Continued> high-grade luminal stenosis. The middle cerebral [...] 2 Signed Report (CONTINUED) Name: [facility] : 1975 Age/S: 42 / F [address] [place] [address] Blvd Unit #: [id number] Loc: [place] [address] Phys: David Cifuentes MD Acct: [id number] Dis Date: Status: ADM IN PHONE #: [phone] Exam Date: 04/22/2018 0936 FAX #: [phone] Reason: vertigo EXAMS: CPT CODE: [id number] ANGIO HEAD [address] < Continued> ICA) x 100 -Mild: <50% stenosis -Moderate: 50-69% stenosis -Severe: 70-94% stenosis -Near occlusion: 95-99% stenosis -Occluded: 100% stenosis at 1631 Reported and signed by: Alvarez Mon D.O. CC: David Cifuentes MD Technologist:Kevin Zimmerman RT(R) CTDI: DLP: Trnscb Date/Time: 04/22/2018 (163) [email or web address] Orig Print D/T: S: 04/22/2018 (1634) CTDI: DLP: PAGE 3 Signed Report [id number] 08:31:00* Test Item Value Reference Range Comments GLUBED (test code=GLUBED) 127 MG/DL 70-110 Performed by certified offset press operator apprentice at [facility] COMPREHENSIVE METABOLIC [id number] 05:22:00* Test Item Value Reference Range Comments [...] LDL (test code=LDL) 90 mg/dL 0-100 <100 [id number] NEAR OPTIMAL/ABOVE [id number] HIGH>MA=458 VERY HIGH*Guidelines provided by the National Cholesterol EducationProgram Adult Treatment Panel III [id number] 05:22:00* Test Item Value Reference Range Comments MAGNESIUM (test code=MAG) 2.10 mg/dL 1.8-2.4 T4 [id number] 05:22:00* Test Item Value Reference Range Comments T4 FREE (test code=T4F) 1.0 ng/dL 0.77-1.61 THYROID STIMULATING [id number] 05:22:00* Test Item Value Reference Range Comments THYROID STIMULATING HORMONE (test code=TSH) 1.04 0.42-5.47 Results in alayna-International Units/mL HGBA1C%2018-04-22 05:22:00* Test Item Value Reference Range Comments HGBA1C% (test code=HGBA1C%) 6.8 %A1C 4.8-6.0 CBC W/AUTO [id number] 04:53:00* Test Item Value Reference Range Comments [...] (test code=MDIFF) NO - CT HEAD/BRAIN W/O [id number] 22:59:00 Name: [facility] : 1975 Age/S: 42 / F [address] [place] [address] Unit #: [id number] Loc: [place] [address] Phys: Marleny Modi NP Acct: [id number] Dis Date: Status: ADM IN PHONE #: [phone] Exam Date: 04/21/20182237 FAX #: [phone] Reason: Dizziness EXAMS: CPT CODE: [id number] CT HEAD/BRAIN W/O CONT 14694 PROCEDURE: CT BRAIN WITHOUT CONTRAST INDICATION: 42 [...] CC: Robb Mayer MD; Marleny Modi NP Technologist:RT Osei(R) CTDI: DLP: Trnscb Date/Time: 04/21/2018 (868) [email or web address] Orig Print D/T: S: 04/21/2018 (1058) CTDI: DLP: PAGE 1 Signed Report URINALYSIS [...] /LPF NONE SEEN COMMENTS: Clean CatchBASIC METABOLIC [id number] 18:48:00* Test Item Value Reference Range Comments [...] 0.6-1.3 CALCIUM (test code=CA) 8.9 mg/dL 8.0-10.5 [id number] 18:48:00* Test Item Value Reference Range Comments LIPASE (test code=LIP) 94 IUnit/L 73-393 CBC W/AUTO [id number] 18:42:00* Test Item Value Reference Range Comments [...]
--- OUTSIDE RECORDS SUMMARY | 2018-08-30 15:17 | XMS REPORT | Continuity of Care Document ---
Author Author Clzby Address Unknown Phone Unavailable Care Team Providers Care Script Supervisor Name Role Phone pickrset Unavailable Unavailable Problems Problem Status Onset Date Classification Date Reported Comments Source M54.12 Active 02/28/2015 [facility] Discharge Diagnosis: Abdominal pain in female patient 07/19/2014 07/22/2014 [facility] ABDOMINAL PAIN Active 07/18/2014 [facility] 787.20 APHAGIA 784.1 BURNING SENSATION O Active 03/28/2014 [facility] BIMALLEOLAR FX Active 07/21/2013 [facility] Discharge Diagnosis: Ankle fracture 07/08/2013 07/10/2013 [facility] FALL-ANKLE PAIN Active 07/07/2013 [facility] OTHER Active 07/30/2012 [facility] NECK PAIN Active 06/22/2012 [facility] [place] STAT; AUDITORY SEIZURE Active 07/24/2011 [facility] Gastritis Active Problem 10/24/2012 [facility] [place] Hiatal hernia Active Problem 10/24/2012 [facility] [place] Seizure Active Problem 10/24/2012 [facility] [place] Ulcer Active Problem 10/24/2012 [facility] [place] Depression (Confirmed) Active Problem 03/16/2015 [facility] Fracture1 Active Problem 03/16/2015 right leg [facility] Gastritis Active Problem 03/16/2015 [facility] Hiatal hernia Active Problem 03/16/2015 [facility] Pain / sensation symptom finding Active Problem 03/16/2015 [facility] Seizure Active Problem 03/16/2015 [facility] Ulcer Active Problem 03/16/2015 [facility] CONVULSIONS NEC Active [facility] XRAY Active [facility] JOINT PAIN-SHLDER Active [facility] BILAT HIPS, LUMBAR SPINE Active [facility] [place] FX BIMALLEOLAR-CLOSED Active [facility] SPRAIN OF ANKLE DELTOID Active [facility] SPRAIN CALCANEOFIBULAR Active [facility] SPRAIN DISTAL TIBIOFIBUL Active [facility] RT ANKLE Active [facility] DYSPHAGIA NOS Active [facility] RADICULOPATHY, CERVICAL REGION Active [facility] Medications Medication Details Route Status Patient Instructions Ordering Provider Order Date Source Amoxicillin/Potassium Clav (Augmentin 875-125 Tablet) 1 Each Tablet Twice A Day Active [facility] 03/06/2017 [facility] Amoxicillin/Potassium Clav (Augmentin 875-125 Tablet) 1 Each Tablet Twice A Day Active [facility] 03/06/2017 [facility] Promethazine Hydrochloride 25 MG Oral Tablet [Phenergan] 25 mg=1 tab, PO, Q6H, PRN Nausea, X 4 day, # 15 tab, 0 Refill(s) Active 07/19/2014 [facility] Ranitidine 150 MG Oral Tablet [Zantac] 150 mg=1 tab, PO, BID, # 60 tab, 0 Refill(s) Active 07/19/2014 [facility] Dicyclomine Hydrochloride 20 MG Oral Tablet [Bentyl] 20 mg=1 tab, PO, QID-Before Meals, # 28 tab, 0 Refill(s) Active 07/19/2014 [facility] Morphine 4 mg, Route: IVP, Drug form: INJ, ONCE, Dosing Weight 113.636, kg, Priority: STAT, Start date: 07/18/14 23:28:00, Stop date: 07/18/14 23:28:00 Inactive 07/19/2014 [facility] Morphine 4 mg, Route: IVP, ONCE, Dosing Weight 113.636, kg, Priority: STAT, Start date: 07/18/14 19:33:00, Stop date: 07/18/14 19:33:00 Inactive 07/19/2014 [facility] GI cocktail 30 mL, Route: PO, Dosing Weight 113.636, kg, ONCE, STAT, Start date: 07/18/14 19:33:00, Stop date: 07/18/14 19:33:00 Inactive 07/19/2014 [facility] Ondansetron 4 mg, Route: IVP, ONCE, Dosing Weight 113.636, kg, Priority: STAT, Start date: 07/18/14 19:33:00, Stop date: 07/18/14 19:33:00 Inactive 07/19/2014 [facility] Famotidine 20 mg, Route: IVP, ONCE, Dosing Weight 113.636, kg, Priority: STAT, Start date: 07/18/14 19:33:00, Stop date: 07/18/14 19:33:00 Inactive 07/19/2014 [facility] Sodium Chloride 0.154 MEQ/ML Injectable Solution 1,000 mL, Infuse Over: 1 hr, Route: IV, ONCE, Priority: STAT, Dosing Weight 113.636 kg, Start date: 07/18/14 19:33:00, Duration: 1 doses or times, Stop date: 07/18/14 19:33:00 Inactive 07/19/2014 [facility] Saline Flush 0.9% 10 mL, Route: IVP, Drug Form: INJ, Dosing Weight 113.636, kg, PRN, PRN Line Flush, Start date: 07/18/14 19:33:00, Duration: 30 day, Stop date: 08/17/14 19:32:00Notes: (Same as: Posiflush) No Longer Active 07/19/2014 [facility] Oxycodone Hydrochloride 5 MG Oral Tablet 5 mg, Route: PO, Drug form: TAB, ONCE, Dosing Weight 95.455, kg, Start date: 07/25/13 16:24:00, Stop date: 07/25/13 16:24:00 Inactive 07/25/2013 [facility] Hydromorphone 1 mg, Route: IV, ONCE, Dosing Weight 95.455, kg, Start date: 07/25/13 15:50:00, Stop date: 07/25/13 15:50:00 Inactive 07/25/2013 [facility] Lactated Ringers IV 1,000 mL 1,000 mL, Rate: 40 ml/hr, Infuse over: 25 hr, Route: IV, Dosing Weight 95.455 kg, Total Volume: 1,000, Start date: 07/25/13 12:30:00, Duration: 30 day, Stop date: 08/24/13 12:29:00 Inactive 07/25/2013 [facility] Diazepam 5 MG Oral Tablet [Valium] 5 mg=1 tab, PO, QID, Spasm, # 30 tab, 0 Refill(s) Active 07/25/2013 [facility] Acetaminophen 325 MG / Hydrocodone Bitartrate 7.5 MG Oral Tablet [[place] 7.5/325] 1-2 tab, PO, Q4-6H, Pain, # 30 tab, 0 Refill(s) Active 07/25/2013 [facility] Cephalexin 500 MG Oral Capsule [Keflex] 500 mg=1 cap, PO, QID, # 40 cap, 0 Refill(s) Active 07/25/2013 [facility] Hydroxyzine Hydrochloride 25 MG Oral Tablet 25 mg=1 tab, PO, as needed for anxiety, 0 Refill(s) Active 07/24/2013 [facility] citalopram 20 mg oral tablet 20 mg=1 tab, PO, Daily, 0 Refill(s) Active 07/24/2013 [facility] omeprazole 20 mg oral enteric coated tablet 20 mg=1 tab, PO, Daily, 0 Refill(s) Active 07/24/2013 [facility] lamotrigine 150 MG Oral Tablet [Lamictal] 150 mg=1 tab, PO, BID, 0 Refill(s) Active 07/24/2013 [facility] lacosamide 100 MG Oral Tablet [Vimpat] 100 mg=1 tab, PO, BID, 0 Refill(s) Active 07/24/2013 [facility] Acetaminophen 325 MG / Hydrocodone Bitartrate 5 MG Oral Tablet [[place] 5/325] 1 tab, PO, Q4-6H, as needed for pain, # 30 tab, 0 Refill(s) Active 07/08/2013 [facility] Acetaminophen 325 MG / Hydrocodone Bitartrate 5 MG Oral Tablet [[place] 5/325] 1 tab, Route: PO, Dosing Weight 114.091, kg, ONCE, Start date: 07/08/13 0:05:00, Stop date: 07/08/13 0:05:00 Inactive 07/08/2013 [facility] [place] 5/325 oral tablet 1-2 tab, PO, Q4-6H, PRN, 15 tab, Pain, Substitution Allowed, Maintenance PO Active Eduardo 07/30/2012 [facility] [place] 5/325 oral tablet 2 tab, Route: PO, Dosing Weight 113.636, kg, ONCE, Start date: 07/30/12 18:32:00, Stop date: 07/30/12 18:32:00 PO No Longer Active Eduardo 07/30/2012 [facility] Saline Flush 0.9% 5 ml, Route: IVP, Drug Form: INJ, Dosing Weight 113.636, kg, PRN, PRN Line Flush, Start date: 07/30/12 14:10:00, Duration: 30 day, Stop date: 08/29/12 14:09:00 IVP No Longer Active [place] 07/30/2012 [facility] Allergies, Adverse Reactions, Alerts No Known Medication Allergies Immunizations No Data Provided for This Section Results Order Name Results Value Reference Range Date Interpretation Comments Source CHEM PANEL Lipase Lvl 101 73 - 393 07/19/2014 [facility] CHEM PANEL Amylase Lvl 50 25 - 115 07/19/2014 [facility] CHEM PANEL A/G Ratio 0.9 0.7 - 1.6 07/19/2014 [facility] CHEM PANEL Globulin 4.1 2.0 - 4.0 07/19/2014 [facility] CHEM PANEL B/C Ratio 10 6 - 25 07/19/2014 [facility] CHEM PANEL AGAP 11.8 10.0 - 20.0 07/19/2014 [facility] CHEM PANEL Chloride Lvl 108 95 - 109 07/19/2014 [facility] CHEM PANEL Potassium Lvl 3.8 3.5 - 5.1 07/19/2014 [facility] CHEM PANEL Sodium Lvl 140 135 - 145 07/19/2014 [facility] CHEM PANEL eGFR 73 07/19/2014 <sup>1</sup>Result Comment: The eGFR is calculated using the CKD-EPI formula. In most young, healthy individuals the eGFR will be >90 mL/min/1.73m2. The eGFR declines with age. An eGFR of 60-89 may be normal in some populations, particularly the elderly, for whom the CKD-EPI formula has not been extensively validated. Use of the eGFR is not recommended in the following populations:& lt;br/>
Individuals with unstable creatinine concentrations, including patients [...] should be multiplied by the estimated BMI. [facility] CHEM PANEL Bili Total 0.5 0.2 - 1.3 07/19/2014 [facility] CHEM PANEL Alk Phos 359 39 - 136 07/19/2014 [facility] CHEM PANEL AST 197 0 - 37 07/19/2014 [facility] CHEM PANEL ALT 200 0 - 65 07/19/2014 [facility] CHEM PANEL Albumin Lvl 3.8 3.5 - 5.0 07/19/2014 [facility] CHEM PANEL Total Protein 7.9 6.4 - 8.4 07/19/2014 [facility] CHEM PANEL Glucose Lvl 116 70 - 99 07/19/2014 <sup>2</sup>Interpretive Data: Adult reference range values reflect the clinical guidelines
of the [place] [employer]. [facility] CHEM PANEL Calcium Lvl 8.7 8.5 - 10.5 07/19/2014 [facility] CHEM PANEL CO2 24 24 - 32 07/19/2014 [facility] CHEM PANEL Creatinine Lvl 1.0 0.5 - 1.4 07/19/2014 [facility] CHEM PANEL BUN 10 7 - 22 07/19/2014 [facility] HEMATOLOGY Hct 38.8 36.0 - 48.0 07/19/2014 [facility] HEMATOLOGY MCV 80.3 80.0 - 98.0 07/19/2014 [facility] MCH 26.7 27.0 - 31.0 07/19/2014 [facility] MCHC 33.2 32.0 - 36.0 07/19/2014 [facility] HEMATOLOGY RDW 15.1 11.5 - 14.5 07/19/2014 [facility] HEMATOLOGY Platelet 350 133 - 450 07/19/2014 [facility] HEMATOLOGY MPV 8.4 7.4 - 10.4 07/19/2014 [facility] HEMATOLOGY WBC 8.2 3.7 - 10.4 07/19/2014 [facility] HEMATOLOGY Hgb 12.9 12.0 - 16.0 07/19/2014 [facility] HEMATOLOGY RBC 4.83 4.20 - 5.40 07/19/2014 [facility] HEMATOLOGY Basophils # 0.1 0.0 - 0.2 07/19/2014 [facility] HEMATOLOGY Eosinophils # 0.2 0.0 - 0.5 07/19/2014 [facility] HEMATOLOGY Monocytes # 0.5 0.0 - 0.8 07/19/2014 [facility] HEMATOLOGY Lymphocytes 35.6 20.0 - 40.0 07/19/2014 [facility] HEMATOLOGY Segs 55.3 45.0 - 75.0 07/19/2014 [facility] HEMATOLOGY Monocytes 6.3 2.0 - 12.0 07/19/2014 [facility] HEMATOLOGY Eosinophils 2.0 0.0 - 4.0 07/19/2014 [facility] HEMATOLOGY Segs-Bands # 4.5 1.5 - 8.1 07/19/2014 [facility] HEMATOLOGY Basophils 0.8 0.0 - 1.0 07/19/2014 [facility] HEMATOLOGY Lymphocytes # 2.9 1.0 - 5.5 07/19/2014 [facility] URINE AND STOOL UA Color Ltyellow 07/19/2014 [facility] URINE AND STOOL UA Urobilinogen <=1.0 mg/dL 0.1 - 1.0 07/19/2014 [facility] URINE AND STOOL UA RBC 2 0 - 2 07/19/2014 [facility] URINE AND STOOL UA WBC 1 0 - 5 07/19/2014 [facility] URINE AND STOOL UA Sq Epi Occasional /LPF Few /LPF 07/19/2014 [facility] URINE AND STOOL UA Blood Small *ABN* (07/18/14 7:53 PM) Negative 07/19/2014 [facility] URINE AND STOOL UA Bili Negative *NA* (07/18/14 7:53 PM) Negative 07/19/2014 [facility] URINE AND STOOL UA Nitrite Negative (07/18/14 7:53 PM) Negative 07/19/2014 [facility] URINE AND STOOL UA Leuk Est Negative (07/18/14 7:53 PM) Negative 07/19/2014 [facility] URINE AND STOOL UA Turbidity Clear (07/18/14 7:53 PM) Clear 07/19/2014 [facility] URINE AND STOOL UA pH 6.0 5.0 - 8.0 07/19/2014 [facility] URINE AND STOOL UA Spec Grav 1.010 <=1.030 07/19/2014 [facility] URINE AND STOOL UA Glucose Negative mg/dL Negative mg/dL 07/19/2014 [facility] URINE AND STOOL UA Protein Negative mg/dL Negative mg/dL 07/19/2014 [facility] URINE AND STOOL UA Ketones Negative mg/dL Negative mg/dL 07/19/2014 [facility] URINE CHEM U Preg Negative (07/18/14 7:53 PM) Negative 07/19/2014 [facility] HEMATOLOGY MCV 76.7 81.0 - 99.0 07/24/2013 [facility] HEMATOLOGY MCH 26.0 27.0 - 31.0 07/24/2013 [facility] HEMATOLOGY MPV 8.1 7.4 - 10.4 07/24/2013 [facility] HEMATOLOGY RDW 13.8 11.5 - 14.5 07/24/2013 [facility] HEMATOLOGY MCHC 33.8 32.0 - 36.0 07/24/2013 [facility] HEMATOLOGY Platelet 438 133 - 450 07/24/2013 [facility] HEMATOLOGY WBC 9.5 3.7 - 10.4 07/24/2013 [facility] HEMATOLOGY Hct 37.6 36.0 - 48.0 07/24/2013 [facility] HEMATOLOGY RBC 4.90 4.20 - 5.40 07/24/2013 [facility] HEMATOLOGY Hgb 12.7 12.0 - 16.0 07/24/2013 [facility] HEMATOLOGY Basophils # 0.0 0.0 - 0.2 07/24/2013 [facility] HEMATOLOGY Eosinophils 3.1 0.0 - 4.0 07/24/2013 [facility] HEMATOLOGY Monocytes 7.7 2.0 - 12.0 07/24/2013 [facility] HEMATOLOGY Lymphocytes 42.2 20.0 - 40.0 07/24/2013 [facility] HEMATOLOGY Segs 46.5 45.0 - 75.0 07/24/2013 [facility] HEMATOLOGY Basophils 0.5 0.0 - 1.0 07/24/2013 [facility] HEMATOLOGY Lymphocytes # 4.0 1.0 - 5.5 07/24/2013 [facility] HEMATOLOGY Segs-Bands # 4.4 1.5 - 8.1 07/24/2013 [facility] HEMATOLOGY Monocytes # 0.7 0.0 - 0.8 07/24/2013 [facility] HEMATOLOGY Eosinophils # 0.3 0.0 - 0.5 07/24/2013 [facility] URINE CHEM U Preg Negative (07/24/13 3:44 PM) Negative 07/24/2013 [facility] CHEMISTRY U Opiate Scr Positive *ABN* (07/30/2012 16:50:00) Negative 07/30/2012 ABN [facility] CHEMISTRY U Cannab Scr Negative *NA* (07/30/2012 16:50:00) Negative 07/30/2012 NA [facility] CHEMISTRY U Phencyc Scr Negative *NA* (07/30/2012 16:50:00) Negative 07/30/2012 NA [facility] CHEMISTRY U Cocaine Scr Negative *NA* (07/30/2012 16:50:00) Negative 07/30/2012 NA [facility] CHEMISTRY U Benzodia Scr Negative *NA* (07/30/2012 16:50:00) Negative 07/30/2012 NA [facility] CHEMISTRY UDS Note See Note 3 (07/30/2012 16:50:00) 07/30/2012 Normal <sup>3</sup>Interpretive Data: Drugs reported as positive have not [...] ng/mL
Marijuana metabolites 50 ng/mL
Methadone 300 ng/m L
Urine alcohol 20 mg/dL [facility] CHEMISTRY U Lynda Scr Negative *NA* (07/30/2012 16:50:00) Negative 07/30/2012 [facility] CHEMISTRY U Amph Scr Negative *NA* (07/30/2012 16:50:00) Negative 07/30/2012 [facility] URINALYSIS UA Urobilinogen 0.1 - 1.0 07/30/2012 NA [facility] URINALYSIS UA Color Ltyellow 07/30/2012 NA [facility] URINALYSIS UA pH 5.0 5.0 - 8.0 07/30/2012 Normal [facility] URINALYSIS UA Turbidity Clear (07/30/2012 16:50:00) Clear 07/30/2012 Normal [facility] URINALYSIS UA RBC 2 0 - 2 07/30/2012 Normal [facility] URINALYSIS UA Sq Epi Occasional /LPF *NA* (07/30/2012 16:50:00) Few 07/30/2012 NA [facility] URINALYSIS UA Uric Ac Michelle Occasional /HPF *NA* (07/30/2012 16:50:00) None Seen 07/30/2012 [facility] URINALYSIS UA Mucus Few /LPF *NA* (07/30/2012 16:50:00) None Seen 07/30/2012 [facility] URINALYSIS UA Spec Grav 1.013 <=1.030 07/30/2012 Normal [facility] URINALYSIS UA Bili Negative *NA* (07/30/2012 16:50:00) Negative 07/30/2012 [facility] URINALYSIS UA Protein 100 mg/dL *ABN* (07/30/2012 16:50:00) Negative 07/30/2012 ABN [facility] URINALYSIS UA Glucose Negative mg/dL *NA* (07/30/2012 16:50:00) Negative 07/30/2012 [facility] URINALYSIS UA Blood Moderate *ABN* (07/30/2012 16:50:00) Negative 07/30/2012 ABN [facility] URINALYSIS UA Ketones Negative mg/dL *NA* (07/30/2012 16:50:00) Negative 07/30/2012 [facility] URINALYSIS UA Bacteria Occasional /HPF *NA* (07/30/2012 16:50:00) None Seen 07/30/2012 [facility] URINALYSIS UA WBC 1 0 - 5 07/30/2012 Normal [facility] URINALYSIS UA Nitrite Negative (07/30/2012 16:50:00) Negative 07/30/2012 Normal [facility] URINALYSIS UA Leuk Est Negative (07/30/2012 16:50:00) Negative 07/30/2012 Normal [facility] CHEMISTRY B/C Ratio 8 6 - 25 07/30/2012 Normal [facility] CHEMISTRY Globulin 4.7 2.0 - 4.0 07/30/2012 [facility] CHEMISTRY A/G Ratio 0.8 0.7 - 1.6 07/30/2012 Normal [facility] CHEMISTRY AGAP 24.7 10.0 - 20.0 07/30/2012 [facility] CHEMISTRY eGFR 59 07/30/2012 NA <sup>1</sup>Result Comment: The eGFR is calculated using the CKD-EPI formula. In most young, healthy individuals the eGFR will be >90 mL/min/1.73m2. The eGFR declines with age. An eGFR of 60-89 may be normal in some populations, particularly the elderly, for whom the CKD-EPI formula has not been extensively validated. Use of the eGFR is not recommended in the following populations:& lt;br/>
Individuals with unstable creatinine concentrations, including patients [...] should be multiplied by the estimated BMI. [facility] CHEMISTRY Albumin Lvl 3.8 3.5 - 5.0 07/30/2012 Normal [facility] CHEMISTRY Alk Phos 255 39 - 136 07/30/2012 [facility] CHEMISTRY Bili Total 0.4 0.2 - 1.3 07/30/2012 Normal [facility] CHEMISTRY ALT 88 0 - 65 07/30/2012 [facility] CHEMISTRY AST 55 0 - 37 07/30/2012 [facility] CHEMISTRY Creatinine Lvl 1.2 0.5 - 1.4 07/30/2012 Normal [facility] CHEMISTRY Glucose Lvl 181 70 - 99 07/30/2012 [place] <sup>2</sup>Interpretive Data: Adult reference range values reflect the clinical guidelines
of the [place] [employer]. [facility] CHEMISTRY BUN 10 7 - 22 07/30/2012 Normal [facility] CHEMISTRY Total Protein 8.5 6.4 - 8.4 07/30/2012 [facility] CHEMISTRY CO2 13 24 - 32 07/30/2012 LOW [facility] CHEMISTRY Calcium Lvl 8.7 8.5 - 10.5 07/30/2012 Normal [facility] CHEMISTRY Chloride Lvl 108 95 - 109 07/30/2012 Normal [facility] CHEMISTRY Potassium Lvl 3.7 3.5 - 5.1 07/30/2012 Normal [facility] CHEMISTRY Sodium Lvl 142 135 - 145 07/30/2012 Normal [facility] HEMATOLOGY WBC 21.3 3.7 - 10.4 07/30/2012 [facility] HEMATOLOGY RBC 5.12 4.20 - 5.40 07/30/2012 Normal [facility] HEMATOLOGY Hgb 14.1 12.0 - 16.0 07/30/2012 Normal [facility] HEMATOLOGY Hct 43.2 36.0 - 48.0 07/30/2012 Normal [facility] HEMATOLOGY Platelet 419 133 - 450 07/30/2012 Normal [facility] HEMATOLOGY MPV 8.7 7.4 - 10.4 07/30/2012 Normal [facility] MCHC 32.6 32.0 - 36.0 07/30/2012 Normal [facility] RDW 14.2 11.5 - 14.5 07/30/2012 Normal [facility] HEMATOLOGY MCV 84.2 81.0 - 99.0 07/30/2012 Normal [facility] HEMATOLOGY MCH 27.5 27.0 - 31.0 07/30/2012 Normal [facility] HEMATOLOGY INR 0.95 0.85 - 1.17 07/30/2012 Normal <sup>4</sup>Interpretive Data: RECOMMENDED RANGES FOR PROTIME INR:
2.0-3.0 for most medical and surgical thromboembolic states.
2.5-3.5 for artificial heart valves and recurrent embolism.

INR SHOULD BE USED ONLY FOR PATIENTS ON STABLE ANTICOAGULANT THERAPY. [facility] PTT 29.6 22.9 - 35.8 07/30/2012 Normal <sup>5</sup>Interpretive Data: Heparin Therapeutic Range: 57 - 92 Seconds [facility] HEMATOLOGY PT 12.9 12.0 - 14.7 07/30/2012 Normal [facility] HEMATOLOGY Segs-Bands # 10.2 1.5 - 8.1 07/30/2012 [facility] HEMATOLOGY Basophils 0.4 0.0 - 1.0 07/30/2012 Normal [facility] HEMATOLOGY Lymphocytes # 9.2 1.0 - 5.5 07/30/2012 [facility] HEMATOLOGY Eosinophils 1.5 0.0 - 4.0 07/30/2012 Normal [facility] HEMATOLOGY Monocytes 6.8 2.0 - 12.0 07/30/2012 Normal [facility] HEMATOLOGY Monocytes # 1.4 0.0 - 0.8 07/30/2012 [facility] HEMATOLOGY Lymphocytes 43.1 20.0 - 40.0 07/30/2012 [facility] HEMATOLOGY Eosinophils # 0.3 0.0 - 0.5 07/30/2012 Normal [facility] HEMATOLOGY Basophils # 0.1 0.0 - 0.2 07/30/2012 Normal [facility] HEMATOLOGY Segs 48.2 45.0 - 75.0 07/30/2012 Normal [facility] Pathology Reports No Data Provided for This Section Diagnostic Reports Report Value Date Source Spine cervical wo contrast MRI MRI CERVICAL [...] cause a similar appearance. SL: 16 03/13/2015 [facility] ED Abdomen/Pelvis IV contrast only CT HISTORY: [...] abdominal or pelvic findings otherwise. SL:12 07/19/2014 [facility] Abdomen RUQ US HISTORY: Acute abdominal pain. Gallbladder absent. Fatty liver. Common bile duct normal 5 mm. Pancreatic neck appears normal. Remaining pancreas obscured. Right kidney demonstrates no hydronephrosis. IMPRESSION: Prior cholecystectomy. No acute finding. Hepatic steatosis. SL:12 07/18/2014 [facility] Barium Swallow w Esophagus Function DX [...] Mild gastroesophageal reflux. Fluoroscopy Time: 3.4 minutes SL:03/30/2014 [facility] Ankle 2 views C-arm spot images from the operating room show placement of a lateral fibular sideplate and screws, medial malleolar screws, and medial and lateral malleolar washers related to synchondrosis fixation. The osseous structures are anatomically aligned. SL:07/25/2013 [facility] Ankle 3 views Right ankle, 3 views: CLINICAL HISTORY: Pain and swelling Nondisplaced comminuted fracture distally in the fibula. Displaced medial malleolar fracture. Widened ankle mortise with anterior subluxation of the distal tibia with respect to the talus. Moderate diffuse soft tissue thickening. SL:07/08/2013 [facility] Consultation Notes No Data Provided for This Section Discharge Summaries No Data Provided for This Section History and Physicals No Data Provided for This Section Vital Signs Vital Sign Value Date Comments Source Systolic (mm Hg) 138 07/19/2014 [facility] Diastolic (mm Hg) 80 07/19/2014 [facility] Respitory Rate 18 07/19/2014 [facility] Temperature Oral (F) 98.4 F 07/19/2014 [facility] Heart Rate 88 07/19/2014 [facility] Respitory Rate 20 07/19/2014 [facility] Heart Rate 95 07/19/2014 [facility] Temperature Oral (F) 98.0 F 07/19/2014 [facility] Systolic (mm Hg) 140 07/19/2014 [facility] Diastolic (mm Hg) 86 07/19/2014 [facility] Systolic (mm Hg) 143 07/19/2014 [facility] Diastolic (mm Hg) 83 07/19/2014 [facility] Temperature Oral (F) 98.0 F 07/19/2014 [facility] Heart Rate 94 07/19/2014 [facility] Respitory Rate 18 07/19/2014 [facility] Weight 113.636 07/18/2014 [facility] BMI Calculated 44.38 07/18/2014 [facility] Height 160.02 cm 07/18/2014 [facility] Diastolic (mm Hg) 79 07/25/2013 [facility] Systolic (mm Hg) 142 07/25/2013 [facility] Respitory Rate 18 07/25/2013 [facility] Systolic (mm Hg) 149 07/25/2013 [facility] Diastolic (mm Hg) 82 07/25/2013 [facility] Respitory Rate 21 07/25/2013 [facility] Systolic (mm Hg) 138 07/25/2013 [facility] Diastolic (mm Hg) 77 07/25/2013 [facility] Respitory Rate 19 07/25/2013 [facility] Temperature Oral (F) 98.0 F 07/24/2013 [facility] Heart Rate 91 07/24/2013 [facility] Height 157.48 cm 07/24/2013 [facility] Weight 95.455 07/24/2013 [facility] BMI Calculated 38.49 07/24/2013 [facility] [facility] Oral (F) 98.5 F 07/08/2013 [facility] Diastolic (mm Hg) 65 07/08/2013 [facility] Respitory Rate 18 07/08/2013 [facility] Systolic (mm Hg) 111 07/08/2013 [facility] Heart Rate 100 07/08/2013 [facility] Systolic (mm Hg) 131 07/08/2013 [facility] Diastolic (mm Hg) 78 07/08/2013 [facility] Heart Rate 110 07/08/2013 [facility] Respitory Rate 18 07/08/2013 [facility] Weight 114.091 07/08/2013 [facility] BMI Calculated 46 07/08/2013 [facility] Height 157.48 cm 07/08/2013 [facility] Temperature Oral (F) 98.6 F 07/08/2013 [facility] Respitory Rate 16 07/08/2013 [facility] Heart Rate 90 07/08/2013 [facility] Diastolic (mm Hg) 118 07/08/2013 [facility] Systolic (mm Hg) 187 07/08/2013 [facility] Height 165.1 cm 07/30/2012 [facility] Weight 113.636 07/30/2012 [facility] Weight 98.182 07/27/2011 [facility] Height 157.48 cm 07/27/2011 [facility] Encounters Location Location Details Encounter Type Encounter Number Reason For Visit Attending Provider ADM Date DC Date Status Source [facility] Outpatient [id number] STAT; AUDITORY SEIZURE KAITY MAJMUNDAR 07/27/2011 Active [facility] Outpatient [id number] XRAY PILO-JHON MORAES 05/27/2012 Active [facility] [id number] NECK PAIN PILO-JHON MORAES 06/28/2012 Active [facility] Emergency [id number] TIBURCIO JACOBBALL 07/30/2012 07/30/2012 Discharged [facility] [id number] BILAT HIPS, LUMBAR SPINE PILO-JHON MORAES 09/23/2012 Active [facility] [id number] Sunny Parikh 07/08/2013 07/08/2013 [facility] OBS Day Surgery [id number] Kadeem Fu 07/25/2013 07/25/2013 [facility] OP Therapy Patients [id number] Kadeem Fu 10/10/2013 11/09/2013 [facility] Outpatient [id number] Emelia Hearn 03/30/2014 03/31/2014 [facility] Emergency [facility] [id number] Donnell Tovar 07/18/2014 07/19/2014 [facility] Outpatient [id number] Kaity Majmundar 03/13/2015 03/14/2015 [facility] Departed Emergency Room [id number] LIAM BUSCH MD 03/06/2017 03/06/2017 [facility] Departed Emergency Room [id number] NILAM INGRAM MD 05/01/2018 05/01/2018 [facility] Procedures Procedure Code Date Perfomer Comments Source Laparoscopy [id number] 02/08/2005 [facility] Cholecystectomy [id number] [facility] Cholecystectomy [id number] [facility] Assessment and Plan No Data Provided for This Section Plan of Care Plan of Care Date Source Discharge Date 05/01/18 1:30pm Disposition HOME, SELF-CARE Condition at Discharge Stable Instructions/Education Provided Knee Overuse Prescriptions See Medication Section Referrals ABDI MORAES MD Order Date: Call for an appointment Address: [address] [place] [address] LEXII SUBRAMANIAN MD Order Date: Call for an appointment Address: [address] [facility] [address] [place] [address] ERIC HOOD MD Order Date: As needed Address: [address] [place] [address] 05/01/2018 [facility] Discharge Date 03/06/17 6:05pm Disposition HOME, SELF-CARE Condition at Discharge Stable Instructions/Education Provided Toothache Forms Provided Work/School Excuse Prescriptions See Medication Section Referrals ABDI MORAES MD Address: [address] [place] [phone] 03/23/2017 [facility] Social History Social History Date Source No social history information available. 05/01/2018 [facility] Social History TypeResponse Smoking Status Never smoker; Exposure to Tobacco Smoke None; Cigarette Smoking Last 365 Days No; Reg Smoking Cessation Counseling No 07/19/2014 [facility] Social History TypeResponse Smoking Status Never smoker, Exposure to Tobacco Smoke None, Cigarette Smoking Last 365 Days No, Reg Smoking Cessation Counseling No 07/08/2013 [facility] Family History No Data Provided for This Section Advance Directives Order Name Results Value Date Source Advance Directives Advance Directives Directive Response Recorded Date/Time Does the patient have an advance directive? No 03/06/17 4:33pm If yes, is advance directive on file with [facility]? No 03/06/17 4:33pm If not on file with [facility] will patient provide a copy? No 03/06/17 4:33pm Do you have a Directive to Physician? No 05/01/18 12:49pm Do you have a Medical Power of File Clerk? No 05/01/18 12:49pm Do you have an out of hospital Do Not Resuscitate Order? No 05/01/18 12:49pm Do you have any special needs we should be aware of? No 05/01/18 12:49pm Do you have a support person here with you today? Yes 05/01/18 12:49pm Did patient receive Notice of Privacy Practices? Yes 05/01/18 12:49pm Did patient receive patient rights and responsibilities? Yes 05/01/18 12:49pm 05/01/2018 [facility] Advance Directives Advance Directives Directive Response Recorded Date/Time Does the patient have an advance directive? No 03/06/17 4:33pm If yes, is advance directive on file with [facility]? No 03/06/17 4:33pm If not on file with [facility] will patient provide a copy? No 03/06/17 4:33pm Do you have a Directive to Physician? No 03/06/17 4:33pm Do you have a Medical Power of File Clerk? No 03/06/17 4:33pm Do you have an out of hospital Do Not Resuscitate Order? No 03/06/17 4:33pm Do you have any special needs we should be aware of? No 03/06/17 4:33pm Do you have a support person here with you today? Yes 03/06/17 4:33pm Did patient receive Notice of Privacy Practices? Yes 03/06/17 4:33pm Did patient receive patient rights and responsibilities? Yes 03/06/17 4:33pm 03/23/2017 [facility] Functional Status No Data Provided for This Section
--- NOTE | 2018-08-30 16:23 | NUR ---
PATIENT TO ROOM 8
[2018-08-30 16:32] LABS: BILIRUBIN,URINE NEGATIVE (NEGATIVE); CLARITY,URINE CLEAR (CLEAR); COLOR,URINE YELLOW (YELLOW); KETONES,URINE NEGATIVE (NEGATIVE); LEUKOCYTE ESTERASE ,URINE NEGATIVE (NEGATIVE); NITRITE,URINE NEGATIVE (NEGATIVE); PROTEIN,URINE DIPSTICK TRACE (NEGATIVE); URINE UROBILINOGEN 0.2 mg/dL (0.2 - 1)
[2018-08-30 16:34] LABS: BASOPHILS % 0.3 % (0.0-1.0); EOSINOPHILS # (AUTO) 0.1 (0.0-0.4); EOSINOPHILS % 0.8 % (0.0-6.0); HEMATOCRIT 43.2 % (34.2-44.1); HEMOGLOBIN 14.6 g/dL (12.0-16.0); LYMPHOCYTES % 31.4 % (18.0-39.1); MEAN CORPUSCULAR HEMOGLOBIN 28.5 pg (28-32); MEAN CORPUSCULAR HGB CONC 33.8 g/dL (31-35); MEAN CORPUSCULAR VOLUME 84.4 fL (81-99); MONOCYTES # (AUTO) 0.5 (0.2-0.8); MONOCYTES % 4.8 % (4.4-11.3); NEUTROPHILS % 62.4 % (38.7-80.0); PLATELET COUNT 398 x10e3/uL (140-360); RED BLOOD COUNT 5.12 x10e6/uL (3.6-5.1); RED CELL DISTRIBUTION WIDTH 13.3 % (11.7-14.4)
[2018-08-30 16:48] LABS: BACTERIA,URINE FEW /HPF; RBC,URINE 0-5 /HPF (0-5); WBC,URINE (MAN) 0-5 /HPF (0-5)
[2018-08-30 16:49] LABS: EPITHELIAL CELLS,URINE FEW /LPF
[2018-08-30 16:50] LABS: ALANINE AMINOTRANSFERASE 36 IU/L (0-55); ALBUMIN 4.1 g/dL (3.5-5.0); ALKALINE PHOSPHATASE 156 IU/L (40-150); ANION GAP 12.8 mmol/L (8-16); BLOOD UREA NITROGEN 13 mg/dL (7-26); BUN/CREATININE RATIO 13 (6-25); CARBON DIOXIDE 23 mmol/L (22-29); CHLORIDE 109 mmol/L (98-107); CREATININE, SERUM 0.97 mg/dL (0.57-1.11); EST GLOMERULAR FILTRATION RATE > 60 ML/MIN (60-); GLUCOSE 146 mg/dL (74-118); POTASSIUM 3.8 mmol/L (3.5-5.1); SODIUM 141 mmol/L (136-145)
--- NOTE | 2018-08-30 19:11 | Diagnostic Imaging Report ---
EXAMINATION: CHEST 2 VIEWS INDICATION: ^abd pain ^[id number] ^[id number] COMPARISON: None FINDINGS: PA and lateral views TUBES and LINES: None. LUNGS: Lungs are well inflated. Lungs are clear. There is no evidence of pneumonia or pulmonary edema. PLEURA: No pleural effusion or pneumothorax. HEART AND MEDIASTINUM: The cardiomediastinal silhouette is unremarkable. BONES AND SOFT TISSUES: No acute osseous lesion. Soft tissues are unremarkable. UPPER ABDOMEN: No free air under the diaphragm. Right upper quadrant cholecystectomy clips. IMPRESSION: No acute thoracic abnormality. Signed by: Dr. Nataliya Stubbs M.D. on 08/30/2018 7:08 PM
--- NOTE | 2018-08-30 19:12 | Diagnostic Imaging Report ---
EXAM: Abdomen 2 Views INDICATION: ^abd pain ^[id number] ^[id number] COMPARISON: Chest radiograph 08/30/2018 FINDINGS: Lines/tubes: None. Mild amount of stool in the colon. No dilated loops of small bowel. Indeterminate 2 mm hyperdensity overlying the left kidney may represent a tiny stone. No abnormal soft tissue masses. Right upper quadrant cholecystectomy placed. No degenerative changes in the lumbar spine and pelvis. IMPRESSION: Questionable tiny calcified stone overlying the left kidney. Signed by: Dr. Nataliya Stubbs M.D. on 08/30/2018 7:09 PM
[2018-08-30] MEDS ORDERED: KETOROLAC TROMETHAMINE 30 MG/ML VIAL IV NR (19:45)
== END 2018-08-30 19:55 | disposition home or self-care (01) ==
LOC: ER 15:13
DX: R10.32 Left lower quadrant pain (principal); R11.2 Nausea with vomiting, unspecified; K59.00 Constipation, unspecified
CPT/HCPCS: 36415; 71046; 74018; 80053; 81001; 84702; 85025; 96374; 99284; J1885

== ENCOUNTER 2019-04-23 11:49 | Emergency (ER) | payer MEDICARE, OTHER ==
[~2019-04-23] VITALS: Ht 157.5 cm; Wt 111.1 kg
[~2019-04-23 11:49] MED LIST changes: +BACTRIM DS TAB1 EACH PO; +DIFLUCAN150 MG PO; +FIORINAL 50-321 EACH PO
--- NOTE | 2019-04-23 12:43 | Diagnostic Imaging Report ---
Ankle complete CPT CODE: 98961 HISTORY: Fall TECHNIQUE: Three views left ankle obtained COMPARISON: None. FINDINGS: The distal tibia and fibula appear intact. Ankle mortise remains symmetric. There may be minimal lateral soft tissue swelling adjacent to the malleolus. There is an small ununited ossicle at the inferior aspect of the medial malleolus without donor site, suggestive of remote injury. The calcaneus appears intact with small plantar and posterior spurs. The visualized portions of the midfoot and forefoot are intact. IMPRESSION: No evidence of acute fracture or dislocation involving the ankle. Signed by: Dr. Jayne Lincoln MD on 04/23/2019 12:40 PM
== END 2019-04-23 13:07 | disposition home or self-care (01) ==
LOC: FSED 11:49
DX: S93.492A Sprain of other ligament of left ankle, initial encounter (principal); W01.0XXA Fall on same level from slipping, tripping and stumbling without subsequent striking against object, initial encounter; Y93.01 Activity, walking, marching and hiking; Y92.008 Other place in unspecified non-institutional (private) residence as the place of occurrence of the external cause; E11.9 Type 2 diabetes mellitus without complications; G40.909 Epilepsy, unspecified, not intractable, without status epilepticus; E78.5 Hyperlipidemia, unspecified; E28.2 Polycystic ovarian syndrome; K21.9 Gastro-esophageal reflux disease without esophagitis; E66.01 Morbid (severe) obesity due to excess calories
CPT/HCPCS: 99283

== ENCOUNTER 2019-11-08 13:32 | Emergency (ER) | payer MEDICARE, OTHER ==
[~2019-11-08] VITALS: Ht 157.5 cm; Wt 127.0 kg
[2019-11-08] MEDS ORDERED: KETOROLAC TROMETHAMINE 60 MG/2 ML VIAL IM ONE (14:15)
[2019-11-08] MEDS ORDERED: KETOROLAC TROMETHAMINE 60 MG/2 ML VIAL ONE (14:15)
[2019-11-08] MEDS ORDERED: HYDROCODONE/APAP 10MG-325MG TAB PO ONE (15:00)
[2019-11-08] MEDS ORDERED: HYDROCODONE/APAP 5MG-325MG TAB ONE (15:13)
== END 2019-11-08 15:21 | disposition home or self-care (01) ==
LOC: FSED 13:41
DX: M54.2 Cervicalgia (principal); M54.6 Pain in thoracic spine; M54.5 Low back pain; X50.3XXA Overexertion from repetitive movements, initial encounter; E11.9 Type 2 diabetes mellitus without complications; G40.909 Epilepsy, unspecified, not intractable, without status epilepticus; E78.5 Hyperlipidemia, unspecified; K21.9 Gastro-esophageal reflux disease without esophagitis; E28.2 Polycystic ovarian syndrome; E66.01 Morbid (severe) obesity due to excess calories
CPT/HCPCS: 72040; 72070; 72100; 99283; J1885

== ENCOUNTER 2020-02-26 17:36 | Emergency (ER) | payer MEDICARE, OTHER ==
[~2020-02-26] VITALS: Ht 157.5 cm; Wt 124.3 kg
[2020-02-26] MEDS ORDERED: TROKENDI XR200 MG PO (19:40)
[2020-02-26 19:51] VITALS: BP 144/83
== END 2020-02-26 19:51 | disposition home or self-care (01) ==
LOC: FSED 17:53
DX: S00.83XA Contusion of other part of head, initial encounter (principal); S16.1XXA Strain of muscle, fascia and tendon at neck level, initial encounter; G40.909 Epilepsy, unspecified, not intractable, without status epilepticus; E11.9 Type 2 diabetes mellitus without complications; E78.5 Hyperlipidemia, unspecified; K21.9 Gastro-esophageal reflux disease without esophagitis; D64.9 Anemia, unspecified
CPT/HCPCS: 70450; 72125; 99283

== ENCOUNTER 2020-04-03 03:27 | Emergency (ER) | payer MEDICARE, OTHER ==
[~2020-04-03] VITALS: Ht 157.5 cm; Wt 124.3 kg
[~2020-04-03 03:27] MED LIST changes: +TROKENDI XR200 MG PO
[2020-04-03] MEDS ORDERED: KETOROLAC TROMETHAMINE 30 MG/ML VIAL IV STA (04:28)
[2020-04-03] MEDS ORDERED: KETOROLAC TROMETHAMINE 30 MG/ML VIAL ONE (04:40)
[2020-04-03] MEDS ORDERED: ONDANSETRON HCL 4 MG ORAL DISINTEGRATING TAB ONE (07:15)
== END 2020-04-03 06:18 | disposition home or self-care (01) ==
LOC: FSED 04:37
DX: R10.33 Periumbilical pain (principal); E11.65 Type 2 diabetes mellitus with hyperglycemia; G40.909 Epilepsy, unspecified, not intractable, without status epilepticus; E78.5 Hyperlipidemia, unspecified; K21.9 Gastro-esophageal reflux disease without esophagitis; D64.9 Anemia, unspecified; E28.2 Polycystic ovarian syndrome; E66.01 Morbid (severe) obesity due to excess calories
CPT/HCPCS: 74176; 80053; 81003; 85025; 99284; J1885; Q0162

== ENCOUNTER 2020-05-06 15:21 | Emergency (ER) | payer MEDICARE, OTHER ==
[~2020-05-06] VITALS: Ht 157.5 cm; Wt 124.3 kg
[2020-05-06] MEDS ORDERED: IBUPROFEN 200 MG TAB PO ONE (16:15)
[2020-05-06] MEDS ORDERED: ACETAMINOPHEN 325 MG TAB PO ONE (16:15)
[2020-05-06] MEDS ORDERED: FAMOTIDINE20 MG PO (16:21)
[2020-05-06] MEDS ORDERED: TYLENOL # 31 EA PO (16:21)
[2020-05-06] MEDS ORDERED: ZOFRAN4 MG PO (16:21)
[2020-05-06] MEDS ORDERED: IBUPROFEN 600 MG TAB ONE (16:38)
[2020-05-06] MEDS ORDERED: ACETAMINOPHEN 325 MG TAB ONE (16:38)
[2020-05-06] MEDS ORDERED: IBUPROFEN IB200 MG PO (16:50)
== END 2020-05-06 17:13 | disposition home or self-care (01) ==
LOC: FSED 16:14
DX: S93.402A Sprain of unspecified ligament of left ankle, initial encounter (principal); M25.562 Pain in left knee; W01.0XXA Fall on same level from slipping, tripping and stumbling without subsequent striking against object, initial encounter; Y93.01 Activity, walking, marching and hiking; E11.9 Type 2 diabetes mellitus without complications; E78.5 Hyperlipidemia, unspecified; K21.9 Gastro-esophageal reflux disease without esophagitis; G40.909 Epilepsy, unspecified, not intractable, without status epilepticus; E28.2 Polycystic ovarian syndrome; E66.01 Morbid (severe) obesity due to excess calories
CPT/HCPCS: 99284

== ENCOUNTER 2020-06-30 15:06 | Emergency (ER) | payer MEDICARE, OTHER ==
[~2020-06-30] VITALS: Ht 157.5 cm; Wt 112.0 kg
[~2020-06-30 15:06] MED LIST changes: +FAMOTIDINE20 MG PO; +IBUPROFEN IB200 MG PO; +TYLENOL # 31 EA PO; +ZOFRAN4 MG PO
[2020-06-30] MEDS ORDERED: SODIUM CHLORIDE 0.9% 1000ML 1,000 ML IV STA (15:22)
[2020-06-30] MEDS ORDERED: KETOROLAC TROMETHAMINE 30 MG/ML VIAL IV ONE (15:30)
[2020-06-30] MEDS ORDERED: ACETAMINOPHEN 325 MG TAB PO ONE (15:30)
[2020-06-30] MEDS ORDERED: KETOROLAC TROMETHAMINE 30 MG/ML VIAL ONE (15:32)
[2020-06-30] MEDS ORDERED: ACETAMINOPHEN 325 MG TAB ONE (15:32)
[2020-06-30] MEDS ORDERED: SODIUM CHLORIDE 0.9% 1000ML 1,000 ML ONE (15:32)
[2020-06-30] MEDS ORDERED: VIMPAT1 EACH (15:53)
[2020-06-30] MEDS ORDERED: TROKENDI XR100 MG (15:53)
[2020-06-30] MEDS ORDERED: LAMOTRIGINE100 MG PO (15:55)
[2020-06-30] MEDS ORDERED: GLIMEPIRIDE2 MG PO (15:56)
[2020-06-30] MEDS ORDERED: BUDESONIDE0.5 MG/2 M NEB (15:56)
[2020-06-30] MEDS ORDERED: ATORVASTATIN CA10 MG PO (16:00)
[2020-06-30] MEDS ORDERED: VERAPAMIL HCL120 MG PO (16:00)
[2020-06-30] MEDS ORDERED: COREG12.5 MG PO (16:00)
[2020-06-30] MEDS ORDERED: PAROXETINE HCL20 MG PO (16:00)
[2020-06-30] MEDS ORDERED: DEXILANT60 MG PO (16:00)
[2020-06-30] MEDS ORDERED: ZANAFLEX4 MG PO (16:17)
[2020-06-30] MEDS ORDERED: IBUPROFEN IB200 MG PO (16:17)
[2020-06-30] MEDS ORDERED: TYLENOL # 31 EA PO (16:17)
== END 2020-06-30 16:26 | disposition home or self-care (01) ==
LOC: FSED 15:23
DX: M43.6 Torticollis (principal); R51.9 Headache, unspecified; I10 Essential (primary) hypertension; E11.9 Type 2 diabetes mellitus without complications; R53.81 Other malaise; E78.5 Hyperlipidemia, unspecified; G40.909 Epilepsy, unspecified, not intractable, without status epilepticus; K21.9 Gastro-esophageal reflux disease without esophagitis; E28.2 Polycystic ovarian syndrome; E66.01 Morbid (severe) obesity due to excess calories; Z98.84 Bariatric surgery status
CPT/HCPCS: 70450; 72125; 99284; J1885; J7030

== ENCOUNTER 2023-06-03 14:37 | Emergency (ER) | payer MEDICARE, OTHER ==
[~2023-06-03] VITALS: Ht 157.5 cm; Wt 114.8 kg
[~2023-06-03 14:37] MED LIST changes: +AJOVY225 MG/1.5; +ALBUTEROL0.63 MG/3 NEB; +ALTACE1.25 MG PO; +AMITRIPTYLINE H10 MG PO; +ATORVASTATIN CA10 MG PO; +BUDESONIDE0.5 MG/2 M NEB; +CLONAZEPAM0.5 MG PO; +COREG12.5 MG PO; +DEXILANT60 MG PO; +GLIMEPIRIDE2 MG PO; +IBUPROFEN800 MG PO; +KETOROLAC TROME10 MG PO; +LAMOTRIGINE100 MG PO; +METHOCARBAMOL500 MG PO; +METHOCARBAMOL750 MG PO; +NIZORAL A-D125 M1; +OZEMPIC2 MG/0.75; +PAROXETINE HCL20 MG PO; +PULMICORT2 ML; +TROKENDI XR100 MG; +VERAPAMIL HCL120 MG PO; +VIMPAT1 EACH; +ZANAFLEX4 MG PO; +ZOLOFT50 MG PO
[2023-06-03 14:50] VITALS: O2SAT 98
== END 2023-06-03 15:02 | disposition home or self-care (01) ==
LOC: FSED 14:47
DX: M54.50 Low back pain, unspecified (principal); E11.9 Type 2 diabetes mellitus without complications; I10 Essential (primary) hypertension; G40.909 Epilepsy, unspecified, not intractable, without status epilepticus; J45.909 Unspecified asthma, uncomplicated; E78.5 Hyperlipidemia, unspecified; D64.9 Anemia, unspecified; K21.9 Gastro-esophageal reflux disease without esophagitis; E28.2 Polycystic ovarian syndrome; E66.01 Morbid (severe) obesity due to excess calories
CPT/HCPCS: 99282

== ENCOUNTER 2024-05-29 12:54 | Emergency (ER) | payer MEDICARE ==
[~2024-05-29] VITALS: Ht 157.5 cm; Wt 94.3 kg
[2024-05-29 13:08] VITALS: PULSE 70; RESP 20; TEMP 97.6
[2024-05-29] MEDS: ACETAMINOPHEN 325 MG TAB PO ONE (13:31)
[2024-05-29] MEDS: KETOROLAC TROMETHAMINE 30 MG/ML VIAL IM STA (13:31)
[2024-05-29] MEDS ORDERED: TYLENOL325 MG PO (13:37)
[2024-05-29] MEDS ORDERED: KETOROLAC TROME10 MG PO (13:37)
[2024-05-29 13:57] VITALS: BP 131/66; RESP 20; O2SAT 98
== END 2024-05-29 13:50 | disposition home or self-care (01) ==
LOC: FSED 13:04
DX: M25.572 Pain in left ankle and joints of left foot (principal); S93.492A Sprain of other ligament of left ankle, initial encounter; W10.8XXA Fall (on) (from) other stairs and steps, initial encounter; Y93.01 Activity, walking, marching and hiking; Y92.89 Other specified places as the place of occurrence of the external cause; I10 Essential (primary) hypertension; E11.9 Type 2 diabetes mellitus without complications; G40.909 Epilepsy, unspecified, not intractable, without status epilepticus; J45.909 Unspecified asthma, uncomplicated; D64.9 Anemia, unspecified; F32.A Depression, unspecified; K21.9 Gastro-esophageal reflux disease without esophagitis; E78.5 Hyperlipidemia, unspecified; E28.2 Polycystic ovarian syndrome; E66.01 Morbid (severe) obesity due to excess calories
CPT/HCPCS: 73610; 99283; J1885